=== PATIENT | female | born 1990 | race Caucasian/White ===

== ENCOUNTER 2021-05-30 15:58 | Observation (INO) | payer OTHER, SELFPAY ==
--- NOTE | ~2021-05-30 | CT_ITS ---
EXAMINATION: CT abdomen pelvis w con EXAM DATE: 05/30/2021 21:17 INDICATION: RLQ abd pain. TECHNIQUE: Spiral CT of the abdomen and pelvis was performed following intravenous injection of 100 m L Omnipaque 350. Axial, coronal and sagittal images of the abdomen and pelvis were reviewed. The do se-length product (DLP) for this examination was 738.72 mGy-cm. The exposure was tailored according to patient size (auto mA exposure control), and iterative reconstruction (ASIR) was used as additiona l dose reduction technique. There is no prior study for comparison. FINDINGS: The liver, spleen, adrenal glands and pancreas are unremarkable. Gallbladder is unremarkab le. No biliary obstruction. Portal and splenic veins are patent. Kidneys enhance symmetrically. T here is no hydronephrosis. The uterus and ovaries are unremarkable, no adnexal mass. The bladder i s unremarkable. There is no retroperitoneal or pelvic lymphadenopathy. There is an appendicolith in the mid aspect of the appendix, indicated on axial image 137. The portio n of appendix distal to the appendicolith is borderline enlarged at 6 mm, and the mucosa may have sli ghtly more enhancement. Possible early acute tip appendicitis. The stomach and small bowel are unrem arkable. There is expected amount of colonic stool. No free intraperitoneal gas. The heart is no rmal in size. There are no pericardial or pleural effusions. The lung bases are unremarkable. Ther e are no osteoblastic or osteolytic lesions identified. IMPRESSION: Possible early acute tip appendicitis. Reviewed, dictated and finalized at location A. PLANER
[2021-05-30 16:00] VITALS: BP 136/68; PULSE 73; RESP 14; TEMP 36.6; O2SAT 100
[2021-05-30 19:32] VITALS: BP 136/88; PULSE 71; RESP 20; O2SAT 100
--- NOTE | 2021-05-30 19:48 | ED.ABDPAIN ---
HPI - Abdominal Pain General Chief Complaint: Abdominal Pain <Keily Leyva PA-C - Last Filed: 05/30/21 22:07> Stated Complaint: rlq pain <Keily Leyva PA-C - Last Filed: 05/30/21 22:07> Time Seen by Provider: 05/30/21 19:19 <Keily Leyva PA-C - Last Filed: 05/30/21 22:07> Source: patient <Keily Leyva PA-C - Last Filed: 05/30/21 22:07> Mode of arrival: ambulatory <Keily Leyva PA-C - Last Filed: 05/30/21 22:07> Limitations: no limitations <Keily Leyva PA-C - Last Filed: 05/30/21 22:07> History of Present Illness HPI narrative: This is a 31-year-old female that presents emergency department for lower abdominal pain present since yesterday. Reports initially was a crampy pain. Now is a dull achy pain. She was tender palpation of the right lower quadrant when evaluated by her primary today. Was sent here for further evaluation. Denies any associated symptoms. Denies fever, vomiting, dysuria, hematuria, or diarrhea. <Keily Leyva PA-C - Last Filed: 05/30/21 22:07> Related Data Allergies/Adverse Reactions: Allergies Allergy/AdvReac Type Severity Reaction Status Date / Time No Known Allergies Allergy Verified 02/15/19 19:25 <Keily Leyva PA-C - Last Filed: 05/30/21 22:07> Review of Systems Review of Systems: CONSTITUTIONAL: Denies fever GASTROINTESTINAL: Reports abdominal pain. Denies nausea, vomiting, or diarrhea. GENITOURINARY: Denies dysuria or hematuria. <Keily Leyva PA-C - Last Filed: 05/30/21 22:07> All systems reviewed & are unremarkable except as noted in HPI and below <Keily Leyva PA-C - Last Filed: 05/30/21 22:07> [facility] Past Medical History Medical History: Medical History (Updated 05/30/21 @ 22:05 by Keily Leyva PA-C) No active medical problems <Keily Leyva PA-C - Last Filed: 05/30/21 22:07> Family History Family History: Family History (Updated 01/21/16 @ 23:19 by DOCTOR UNKNOWN) Other Family history of malignant neoplasm of breast Hypertension <Keily Leyva PA-C - Last Filed: 05/30/21 22:07> Social History Social History: Social History Smoking status: Smoker, status unknown Alcohol intake: never <Keily Leyva PA-C - Last Filed: 05/30/21 22:07> Exam Narrative: GENERAL: Well-appearing, well-nourished, and in no acute distress. HEAD: Normocephalic, atraumatic. EYES: EOMI. CHEST: Clear to auscultation. No respiratory distress. No wheezes rales or rhonchi HEART: Regular rate and rhythm. No murmur heard. Normal peripheral pulses. ABDOMEN: Soft, nondistended, normal active bowel sounds. Tender to palpation of the right lower quadrant, without guarding. No CVA tenderness EXTREMITIES: Normal range of motion. No edema. SKIN: Warm, dry, no rash. NEURO: No focal deficits. Alert and oriented x3. PSYCH: Normal mood and affect <Keily Leyva PA-C - Last Filed: 05/30/21 22:07> Course PEDIATRIC ONCOLOGY NURSE/PA Physician Supervision i have seen this pt and agreed with notes and plan <Gage Oliveros MD - Last Filed: 05/30/21 22:27> Consultations Consultation #1: Spoke with Dr. Gonzales about patient and workup. Patient will be made NPO, started on antibiotics and he will evaluate in the morning <Keily Leyva PA-C - Last Filed: 05/30/21 22:07> Date: 05/30/21 <Keily Leyva PA-C - Last Filed: 05/30/21 22:07> Time: 22:00 <Keily Leyva PA-C - Last Filed: 05/30/21 22:07> Vital Signs Vital signs: Vital Signs Temperature 36.6 C 05/30/21 16:00 Pulse Rate 73 05/30/21 16:00 Respiratory Rate 14 05/30/21 16:00 Blood Pressure 136/68 12/06/21 16:00 Pulse Oximetry 100 05/30/21 16:00 Temperature 36.6 C 05/30/21 16:00 Pulse Rate 71 05/30/21 19:32 Respiratory Rate 20 05/30/21 19:32 Blood Pressure 136/88 05/30/21 19:32 Pulse Oximetry 100 05/30/21 19:32 <Keily Leyva PA-C - Last Filed: 05/30/21 22:07>
[2021-05-30 20:21] LABS: Basophils Percent Auto 0.6 % (0.2-1.2); Eosinophils Absolute Auto 0.1 K/mm3 (0-0.3); Eosinophils Percent Auto 1.3 % (0-4.4); Hematocrit 39.6 % (37.0-47.0); Hemoglobin 14.1 g/dL (12.0-15.0); Immature Granulocyte Absolute 0.01 K/mm3 (0.00-0.031); Immature Granulocyte Percent A 0.2 % (0-0.5); Lymphocytes Absolute Auto 2.15 K/mm3 (0.9-3.2); Mean Corpuscular HGB Conc 35.6 g/dl (32-36); Mean Corpuscular Hemoglobin 31.9 pg (26-34); Mean Corpuscular Volume 89.6 fl (80-100); Mean Platelet Volume 10.6 fl (7.4-10.4); Monocytes Absolute Auto 0.4 K/mm3 (0.1-0.6); Neutrophils Absolute Auto 2.6 K/mm3 (1.3-6.7); Neutrophils Percent Auto 49.9 % (45.5-73.1); Platelet Count Result 244 k/mm3 (150-375); Red Blood Count 4.42 M/mm3 (4.2-5.4); Red Cell Distribution Width 12.3 % (11.5-14.5); White Blood Count 5.3 K/mm3 (4.5-10.0)
[2021-05-30 20:26] LABS: Add Urine Microscopic? YES; Appearance Urine Clear (Clear); Bilirubin Urine Negative (Negative); Blood Urine Negative (Negative); Color Urine Yellow (Yellow); Glucose Urine UA Negative (Negative); Ketones Urine Negative (Negative); Leukocyte Esterase Ur Negative LEU/UL (Negative); Mucus Urine Rare /lpf; Nitrate Urine Negative (Negative); Protein Urine Negative (Negative); Specific Grav Ur 1.013 (1.001-1.035); Squamous Epithelial Cell Urine Rare /hpf (Few); WBC Urine 0-3 /hpf
[2021-05-30 20:42] LABS: Alanine Aminotransferase 21 U/L (4-35); Albumin Level 4.2 g/dL (3.5-5.1); Alkaline Phosphatase 44 U/L (38-126); Anion Gap 6 mmol/L (8-16); Aspartate Amino Transferase 23 U/L (14-36); Bilirubin,Total 0.4 mg/dL (0.2-1.3); Blood Urea Nitrogen 7 mg/dL (7-17); Calcium 9.1 mg/dL (8.4-10.2); Carbon Dioxide 25 mmol/L (22-30); Chloride 104 mmol/L (98-107); Estimated CRCL calculation 141 ml/min; Estimated Glomerular Filt Rate > 60; Glucose 94 mg/dL (65-110); Lipase 49 U/L (23-300); Potassium 3.9 mmol/L (3.4-5.0); Sodium 135 mmol/L (137-145)
[2021-05-31] VITALS (12 sets, daily range): BP systolic 116–130; BP diastolic 51–78; PULSE 64–92; RESP 11–18; TEMP 36.6–36.8; O2SAT 96–100; BMI 30.3
[2021-05-31] MEDS: SODIUM CHLORIDE 0.9% IV 1,000 ML 125 ML IV CONT ×2 (01:19→10:00)
--- NOTE | 2021-05-31 01:28 | ADMGEN ---
This patient, Didi Gomez, was admitted to [facility] Room 316-02. Patient/family oriented to hospital policies and general routines including ID bracelet, bed and alarms, visiting hours, pain management, procedures, bathroom and other care routines, personal items, smoking policy, room service/diet, and visiting hours. Information on how to activate the Rapid Response Team has been discussed. Patient/Family are encouraged to report perceived risks to care and to ask questions if they do not understand what they are told or what they should do.
[2021-05-31 07:18] LABS: Basophils Absolute Auto 0.1 K/mm3 (0.0-0.1); Eosinophils Absolute Auto 0.1 K/mm3 (0-0.3); Eosinophils Percent Auto 1.5 % (0-4.4); Hematocrit 37.3 % (37.0-47.0); Hemoglobin 13.2 g/dL (12.0-15.0); Immature Granulocyte Absolute 0.01 K/mm3 (0.00-0.031); Immature Granulocyte Percent A 0.2 % (0-0.5); Lymphocytes Absolute Auto 2.09 K/mm3 (0.9-3.2); Lymphocytes Percent Auto 40.3 % (18.3-44.2); Mean Corpuscular HGB Conc 35.4 g/dl (32-36); Mean Corpuscular Hemoglobin 31.4 pg (26-34); Mean Corpuscular Volume 88.6 fl (80-100); Mean Platelet Volume 10.7 fl (7.4-10.4); Monocytes Absolute Auto 0.5 K/mm3 (0.1-0.6); Monocytes Percent Auto 9.1 % (2.6-8.5); Neutrophils Absolute Auto 2.5 K/mm3 (1.3-6.7); Neutrophils Percent Auto 47.9 % (45.5-73.1); Platelet Count Result 229 k/mm3 (150-375); Red Blood Count 4.21 M/mm3 (4.2-5.4); Red Cell Distribution Width 12.3 % (11.5-14.5); White Blood Count 5.2 K/mm3 (4.5-10.0)
[2021-05-31 07:45] LABS: Alanine Aminotransferase 21 U/L (4-35); Albumin Level 3.6 g/dL (3.5-5.1); Alkaline Phosphatase 36 U/L (38-126); Anion Gap 7 mmol/L (8-16); Aspartate Amino Transferase 23 U/L (14-36); Bilirubin,Total 0.7 mg/dL (0.2-1.3); Blood Urea Nitrogen 6 mg/dL (7-17); Calcium 8.6 mg/dL (8.4-10.2); Carbon Dioxide 22 mmol/L (22-30); Chloride 107 mmol/L (98-107); Estimated CRCL calculation 123 ml/min; Estimated Glomerular Filt Rate > 60; Glucose 91 mg/dL (65-110); Potassium 3.7 mmol/L (3.4-5.0); Sodium 136 mmol/L (137-145)
--- NOTE | 2021-05-31 09:50 | PM.IMHP ---
H&P: HPI History of Present Illness Date/Time: 05/31/21 09:50 Chief Complaint: Right lower quadrant abdominal pain Narrative: This is a 31-year-old female who presented to the emergency department at the request of her primary care provider yesterday afternoon. She reports noticing an onset of cramping right lower quadrant abdominal pain starting Sunday evening, 2 days ago. Yesterday, she felt her pain improved slightly but she remained very tender in the right lower quadrant. She primarily only noticed her abdominal pain yesterday when sneezing and coughing. She called her PCP yesterday and was seen in the office. They requested she go to the ER for evaluation of her abdominal pain. CT scan of the abdomen and pelvis in the ER showed an appendicolith in the mid aspect of the appendix with a portion of the appendix distal to this being borderline enlarged at 6 mm with slight enhancement of the mucosa. Suggesting possible early acute tip appendicitis. Labs showed a normal white blood cell count. Urinalysis was unremarkable for a UTI. She had a bedside test that was negative. She does report starting her period today. Our service was consulted by the ED physician due to possible early acute appendicitis. The patient was admitted to our service and is seen on the medical floor this morning. She reports her pain is very minimal unless she coughs or someone palpates in her right lower quadrant. She denies nausea or vomiting. No known fevers or chills. No other complaints at this time. She has no history of abdominal surgery. She does report dealing with constipation chronically, but last had a bowel movement this morning. Review of Systems Review of Systems: All systems reviewed & are unremarkable except as noted in HPI and below Constitutional: Constitutional: Reports as per HPI, Denies chills, Denies fatigue and Denies fever(s) Eyes: Eyes: Reports no additional eye complaints ENT: Reports system reviewed and no additional complaints, except as documented and Reports Normal hearing present Cardiovascular: Cardiovascular: Reports no additional cardiovascular complaints, Denies chest pain and Denies leg edema Respiratory: Respiratory: Reports no additional respiratory complaints, Denies cough and Denies dyspnea Gastrointestinal: Gastrointestinal: Reports as per HPI, Reports no additional gastrointestinal complaints, Reports abdominal pain, Denies bloating, Denies hematochezia, Denies change in bowel habits, Denies change in stool character, Denies coffee ground emesis, Denies constipation, Denies diarrhea, Denies nausea and Denies vomiting Genitourinary: Genitourinary: Denies hematuria and Denies dysuria Musculoskeletal: Musculoskeletal: Denies abnormal gait and Denies deformity Neurologic: Reports system reviewed and no additional complaints, except as documented, Denies focal weakness, Denies numbness and Denies tingling Psychiatric: Psychiatric: Denies anxiety, Denies depression and Reports other (Hx ADHD treated with medication) [facility] Past Medical History Medical History ADHD Exercise-induced asthma Surgical History Surgical History No significant past surgical history Family History Family History Mother Gallbladder disease Other Gallbladder disease Other Family history of malignant neoplasm of breast Hypertension Social History Social History Smoking status: Never smoker Alcohol intake: never Substance use: current Substance use type: marijuana Last use: 05/29/2021 Living arrangements: with family Additional living arrangements comments: and has two children, 7 yr old and 12 yr old. Occupation/Education: occupation Additional occupation/education
--- NOTE | 2021-05-31 12:50 | PC.NURSE ---
On 05/31/21, the student, [ Leah Blackwood], provided care and completed [facility] documentation on this patient. I have reviewed the student's documentation and agree with the findings.
--- NOTE | 2021-05-31 13:07 | PC.NURSE ---
On 05/31/21, the student, [Annabel Helton ], provided care and completed [facility] documentation on this patient. I have reviewed the student's documentation and agree with the findings.
--- NOTE | 2021-05-31 14:46 | PC.NURSE ---
to OR per stretcher
--- NOTE | 2021-05-31 15:17 | WPDANESEPPF ---
Anes - Initial Pre Proc Eval Procedure: Operation Date: 05/31/21 14:30 Proposed Procedures p Laparoscopic Appendectomy - Parvez Gonzales DO Date/Time: 05/31/21 15:17 Surgeon: Parvez Gonzales DO Pre Op Diagnosis: Acute Appendicitis Patient Data Age: 31 Gender: F Height: 1.75 m Weight: 93.1 kg Last Vital Signs Temp 36.7 C 05/31/21 08:52 Pulse 82 05/31/21 08:52 Resp 12 05/31/21 08:52 BP 119/51 L 05/31/21 08:52 Pulse Ox 100 05/31/21 08:52 Allergies Allergy/AdvReac Type Severity Reaction Status Date / Time No Known Allergies Allergy Verified 05/31/21 15:03 Home Medications Medication Instructions Recorded Confirmed Type albuterol sulfate 2 puff INHALATION PRN PRN 05/31/21 05/31/21 History cetirizine 10 mg PO DAILY 05/31/21 05/31/21 History dextroamphetamine-amphetamine 15 mg PO DAILY 05/31/21 05/31/21 History fluticasone propionate 1 mcg INTRANASAL PRN 05/31/21 05/31/21 History Laboratory Tests 05/30/21 05/30/21 05/30/21 20:06 20:06 20:06 WBC 5.3 K/mm3 K/mm3 (4.5-10.0) RBC 4.42 M/mm3 M/mm3 (4.2-5.4) Hgb 14.1 g/dL g/dL (12.0-15.0) Hct 39.6 % % (37.0-47.0) MCV 89.6 fl fl (80-100) MCH 31.9 pg pg (26-34) MCHC 35.6 g/dl g/dl (32-36) RDW 12.3 % % (11.5-14.5) Plt Count 244 k/mm3 k/mm3 (150-375) MPV 10.6 fl H fl (7.4-10.4) Immature Gran % (Auto) 0.2 % % (0-0.5) Neut % (Auto) 49.9 % % (45.5-73.1) Lymph % (Auto) 41.0 % % (18.3-44.2) Brooks % (Auto) 7.0 % % (2.6-8.5) Eos % (Auto) 1.3 % % (0-4.4) Baso % (Auto) 0.6 % % (0.2-1.2) Lymph # (Auto) 2.15 K/mm3 K/mm3 (0.9-3.2) Brooks # (Auto) 0.4 K/mm3 K/mm3 (0.1-0.6) Eos # (Auto) 0.1 K/mm3 K/mm3 (0-0.3) Baso # (Auto) 0.0 K/mm3 K/mm3 (0.0-0.1) Abs Immat Gran (auto) 0.01 K/mm3 K/mm3 (0.00-0.031) Absolute Neuts (auto) 2.6 K/mm3 K/mm3 (1.3-6.7) Absolute Nucleated RBC 0.0 K/mm3 K/mm3 (0.0-0.012) Nucleated RBC % 0.0 % % (0.0-0.2) Sodium 135 mmol/L L mmol/L (137-145) Potassium 3.9 mmol/L mmol/L (3.4-5.0) Chloride 104 mmol/L mmol/L (98-107) Carbon Dioxide 25 mmol/L mmol/L (22-30) Anion Gap 6 mmol/L L mmol/L (8-16) BUN 7 mg/dL mg/dL (7-17) Creatinine 0.60 mg/dL L mg/dL (0.7-1.0) Estim Creat Clear Calc 141 ml/min ml/min Estimated GFR > 60 (59 - ) Glucose 94 mg/dL mg/dL (65-110) Calcium 9.1 mg/dL mg/dL (8.4-10.2) Total Bilirubin 0.4 mg/dL mg/dL (0.2-1.3) AST 23 U/L U/L (14-36) ALT 21 U/L U/L (4-35) Alkaline Phosphatase 44 U/L U/L (38-126) Total Protein 7.0 g/dL g/dL (6.3-8.2) Albumin 4.2 g/dL g/dL (3.5-5.1) Lipase 49 U/L U/L (23-300) Urine Color Yellow (Yellow) Urine Appearance Clear (Clear) Urine pH 7.0 (5.0-9.0) Ur Specific Tingley 1.013 (1.001-1.035) Urine Protein Negative mg/dL mg/dL (Negative) Urine Glucose (UA) Negative mg/dL mg/dL (Negative) Urine Ketones Negative mg/dL mg/dL (Negative) Ur Blood (Man) Negative (Negative) Urine Nitrate Negative (Negative) Urine Bilirubin Negative (Negative) Urine Urobilinogen 2.0 mg/dL H mg/dL (<2.0) Leukocyte Esterase Rfl Negative DEBBIE/UL DEBBIE/UL (Negative) Urine RBC 3-5 /hpf H /hpf (0-2) Urine WBC 0-3 /hpf /hpf Ur Squamous Epith Cells Rare /hpf /hpf (Few) Urine Mucus Rare /lpf /lpf 05/31/21 05/31/21 06:36 06:36 WBC 5.2 K/mm3 K/mm3 (4.5-10.0) RBC 4.21 M/mm3 M/mm3 (4.2-5.4) Hgb 13.2 g/dL g/dL (12.0-15.0)
[2021-05-31] MEDS: KETOROLAC 15 MG/ML VIAL (*BKC) IV PUSH (15:20)
[2021-05-31] MEDS: LACTATED RINGERS 1,000 ML 30 ML IV CONT ×2 (15:20→18:15)
--- NOTE | 2021-05-31 16:25 | WPDHPUPDATE1 ---
History and Physical Update Update Date/Time: 05/31/21 16:25 History and Physical has been reviewed, including an updated exam of the patient. There are NO changes in the patient's condition. Risks, benefits, and alternatives have been discussed and questions answered. Patient agrees to proceed with procedure.
[2021-05-31] MEDS: BUPIVACAINE HCL 0.5% PF 30 ML VIAL INFILTRATE (17:22)
[2021-05-31] MEDS: KETOROLAC 30 MG/ML VIAL (*BKC) IV PUSH (17:23)
--- NOTE | 2021-05-31 17:37 | W.PM.PROC2 ---
Procedure Note - Detailed Date of Procedure 05/31/21 Pre-op Diagnosis Acute Appendicitis Post-op Diagnosis same Procedure Performed Laparoscopic appendectomy Surgeon Parvez Gonzales, DO Anesthesia general and local (0.5% bupivicaine) Indications This is a 31-year-old woman who presented with right lower quadrant pain for the past 2 days. She began experiencing some vague lower abdominal pains and then had pain localized to the right lower quadrant. She has never experienced any pain like this in past. Workup in the emergency department showed normal white blood count with a left shift. A CT of her abdomen and pelvis showed evidence of an appendicolith and distal appendiceal thickening. Discussions were made with the patient about treatment options and decision was made to proceed with urgent laparoscopic appendectomy, possible open Findings Laparoscopic appendectomy was performed. The distal 3rd of the appendix appeared indurated and slightly dilated. There was no evidence of perforation or abscess. The base of the appendix appeared healthy and viable. There were no other intra-abdominal abnormalities. The appendix was removed and sent to the lab for pathology. Description of Procedure Procedure as well as risks, benefits, and alternatives were explained to the patient. The patient agreed to proceed. Written consent was obtained and placed in chart prior to procedure. The patient was brought back to surgical suite. She was placed supine on operating table. Time-out was done to confirm the patient and procedure. The patient was then intubated by the Anesthesia Department. Her abdomen was prepped and draped in sterile fashion using chlorhexidine prep. A 5 mm incision was made just to the left of the patient's umbilicus and a 5 mm Optiview trocar was advanced through the abdominal layers under direct visualization. Once inside the peritoneal cavity, carbon dioxide insufflation was used to create a pneumoperitoneum. The camera was inserted and the abdomen was inspected. No immediate abnormalities were identified. The patient was then placed in slight Trendelenburg position and rotated to the left. A 5 mm incision was made in the suprapubic region in midline and a 5 mm trocar was inserted under direct visualization. A 12 mm incision was made in the left lower quadrant and a 12 mm trocar was inserted under direct visualization. The right lower quadrant was carefully inspected. The cecum was identified and then this was traced back to the appendix. The appendix was identified and grasped at the mesoappendix and lifted anteriorly. Careful blunt dissection was carried out at the base of the appendix through the mesoappendix using a [place] grasper. An Endo-LEANDRO 45 mm blue load stapler was then advanced across the base of the appendix and clamped and fired. A white reload was then clamped across the mesoappendix and fired. This freed up our appendix completely. It was then placed in an EndoCatch bag and removed through the left lower quadrant port. The staple lines were then inspected. Hemostasis appeared adequate and the staple lines appeared secure. The area was then irrigated with sterile saline. The pelvis was then carefully inspected and irrigated with sterile saline as well and the remainder of the abdomen was carefully inspected. The patient was then flattened out in bed. One final inspection was made around the abdominal cavity and no other abnormalities were seen. The left lower quadrant port was removed and a Juan Carlos-Lori cone was used to approximate the fascia with an 0 Vicryl simple interrupted suture. The remaining ports were then removed under direct visualization. The camera was removed and the pneumoperitoneum was released. 0.5% bupivacaine with epinephrine was infiltrated locally around each of the incisions. The skin of the incisions was then approximated using 4-0 Monocryl subcuticular suture and Exofin glue was applied
[2021-05-31] MEDS: fentaNYL CITRATE INJ (*CRX) 100 MCG/2 ML VIAL 25 MCG IV PUSH ×2 (18:12→18:16)
[2021-05-31] MEDS: oxyCODONE HCL (*CRX) 5 MG TAB IR PO (18:47)
[2021-05-31] MEDS: ONDANSETRON INJ 4 MG/2 ML VIAL IV PUSH (18:48)
[2021-05-31] MEDS: diphenhydrAMINE HCl INJ 50 MG/ML VIAL 25 MG IV PUSH (19:18)
[2021-05-31] MEDS: DEXTROSE 5% IN WATER 500 ML 100 ML IV CONT (19:20)
[2021-05-31] MEDS: METOCLOPRAMIDE HCL INJ 10 MG/2 ML VIAL IV PUSH (19:25)
[2021-05-31] MEDS: SCOPOLAMINE 1.5 MG PATCH TRANSDERM (19:28)
--- NOTE | 2021-05-31 19:45 | PM.DS ---
DS: Admitting Diagnosis Discharge Date 05/31/21 Admitting Diagnosis Acute uncomplicated appendicitis DS: Discharge Diagnosis Discharge Diagnosis (1) Acute appendicitis: Qualifiers: Acute appendicitis type: with localized peritonitis Appendicitis abscess presence: without abscess Appendicitis gangrene presence: without gangrene Appendicitis perforation presence: without perforation Qualified Code(s): K35.30 - Acute appendicitis with localized peritonitis, without perforation or gangrene Code(s): K35.80 - Unspecified acute appendicitis Status: Acute (2) BMI 30.0-30.9,adult: Code(s): Z68.30 - Body mass index [BMI] 30.0-30.9, adult Status: Acute DS: Summary Hospital Course Reason for hospitalization: Right lower quadrant pain Hospital Course: This is a 31 year woman who presented to the emergency department on 05/30/2021 with right lower quadrant pain for the past several days. Workup in the emergency department showed evidence of acute uncomplicated appendicitis. She was admitted and started on broad-spectrum IV antibiotics. On 05/31/2021 she underwent laparoscopic appendectomy. Surgery was uncomplicated and she was returned to the surgical floor postoperatively. Diet and activity were advanced as tolerated. Her vitals remained stable, she was tolerating her diet, pain was controlled, and she was ambulating in the halls. She was discharged on 05/31/2021. Status at Discharge Functional status at discharge: independent ambulation Overall status at discharge: patient is progressing back to baseline Time Spent with Patient Time attestation: Total time spent providing and/or coordinating discharge services: Time spent: Less than 30 minutes Exam Narrative: Unchanged from preoperative exam except for surgical changes DS: Data Data Completed and Pending Completed studies during hospitalization: Pending at discharge 05/31/21 17:17 Surgical [PTH] Routine Discharge Plan Discharge Attending physician on discharge: Parvez Das Consulting providers: Keily Leyva ; Raphael Mcdonald ; Karen Puga Discharging Clinician: Parvez Das Patient Disposition: Home, Self-Care Activity: other - see discharge instructions Diet: regular Wound Care Instructions: other - see discharge instructions Discharge Instructions: Remove the Scopolamine patch that was placed behind your ear in 72 hours or less. Wash your hands after touching.DISCHARGE INSTRUCTION SHEET FOR HERNIA, GALLBLADDER AND APPENDIX SURGERIES DR. DAS PATIENT TO TAKE HOME 1. May shower in 24 hours, no soaking in bath x 2weeks. 2. Call office for: Wound increasingly painful or bleeding Vomiting Fever of greater than 101 degrees 3. If no bowel movement for three days, take 1 oz. (30 ml) Milk of Magnesia or MiraLax 17g 1 to 2 times daily. 4. No heavy lifting > 10-15 pounds x weeks for hernia repairs and 2 weeks for laparoscopic cholecystectomy or appendectomy. 5. No driving for 3 days or while taking narcotic pain medications. 6. Ice to surgical site for 48 hours (30 min on, then 30 min off). 7. Up walking 10-30 minutes three times per day. 8. Resume previous home medications. 9. Follow-up 10-14 days in office for wound check or as previously scheduled. ([phone]) 10. Oral pain medications prescription to be sent to pharmacy. Take Tylenol 500mg every 6 hours and Ibuprofen 600mg every 6 hours for the first 2 days, then as needed. 11. NUTRITION: Start out by drinking fluids and increase your diet as tolerated. If you experience nausea, try dry toast, crackers, and 7-UP. If nausea or vomiting persists, contact your surgeon?s office. 12. Gallbladders-Low Fat Diet for 2 weeks (send care note of low fat diet) 13. Inguinal Hernias-wear scrotal support for 48 hours 14. Abdominal Hernias-if sent home with
== END 2021-05-31 19:50 | disposition home or self-care (01) ==
LOC: ANHED 22:05 → ANH3MEDSUR 05-31 00:10
PROVIDERS: Physician Assistant; Admitting Provider Surgery; Emergency Provider Family Medicine; PCP Nurse Practitioner Family; Visit Provider Surgery
PROC: 0DTJ4ZZ Resection of Appendix, Percutaneous Endoscopic Approach (ICD-10-PCS; CPT 44970; principal; 2021-05-31 14:30)
DX: K35.30 Acute appendicitis with localized peritonitis, without perforation or gangrene (principal)
CPT/HCPCS: 44970; 36415; 74177; 80053; 81001; 81025; 83690; 85025; 88304; 96361; 96365; 96374; 99285; A9270; G0378; G0379; J0131; J0330; J1100; J1200; J1885; J2250; J2405; J2543; J2704; J2710; J2765; J3010; J7030; J7060; J7120; Q9967

== ENCOUNTER 2021-11-03 11:45 | Outpatient (CLI) | payer OTHER, SELFPAY ==
--- NOTE | ~2021-11-03 | MMUS_ITS ---
EXAMINATION: MM diagnostic melisa RT w roma, US breast RT complete HISTORY: Palpable abnormality in the right breast on clinical examination. TECHNIQUE: Additional 3-D tomosynthesis images of right were performed and synthetic 2-D images were generated. CAD analysis was submitted and interpreted. High resolution complete right breast ultrasou nd was performed. COMPARISON: None BREAST PARENCHYMAL COMPOSITION: The breasts are heterogenously dense, which may obscure small masses FINDINGS: MAMMOGRAPHIC FINDINGS: There are no suspicious masses, calcifications or architectural distortion in the right breast to sug gest malignancy. ULTRASOUND: Complete US of all 4 quadrants of the right breast and retroareolar region was reviewed. Normal heter ogeneous echotexture without focal solid or cystic mass. IMPRESSION: 1. No evidence for malignancy in the right breast. BI-RADS CATEGORY 1 - NEGATIVE Reviewed, dictated and finalized at location A. IMPRESSION: 1. No evidence for malignancy in the right breast. BI-RADS CATEGORY 1 - NEGATIVE
== END 2021-11-03 11:46 | disposition home or self-care (01) ==
PROVIDERS: PCP Nurse Practitioner Family; Visit Provider Obstetrics & Gynecology
DX: R92.8 Other abnormal and inconclusive findings on diagnostic imaging of breast (principal); N63.10 Unspecified lump in the right breast, unspecified quadrant
CPT/HCPCS: 76641; 77061; 77065; G0279

== ENCOUNTER 2022-01-11 13:18 | Emergency (ER) | payer OTHER, SELFPAY ==
--- NOTE | 2022-01-11 13:23 | ED.URI ---
HPI - URI/Sore Throat General Chief Complaint: Upper Respiratory Infection Stated Complaint: Headache,Sinus Time Seen by Provider: 01/11/22 13:24 Source: patient and RN notes reviewed History of Present Illness HPI Narrative: Patient is a 31-year-old female who presents the urgent care with complaints of headache, sinus pressure, chills and body aches. Patient also reports of a dry cough and shortness of breath on exertion. Patient states she does have a history of exercise-induced asthma and has been using her inhaler. Patient states she also takes Singulair and has been using Tylenol Cold and sinus. Patient denies of any ill exposures. Denies any fever, chills, nausea or vomiting. No other acute complaints. No acute distress noted. Patient aware of the plan of care. Some parts of this dictation were generated by voice recognition software and may contain typographical and/or grammatical inaccuracies. Related Data Home Medications Medication Instructions Recorded Confirmed albuterol sulfate 90 mcg/actuation 2 puff inhalation PRN PRN asthma 05/31/21 01/11/22 aerosol inhaler cetirizine 10 mg tablet 10 mg PO DAILY 05/31/21 01/11/22 dextroamphetamine-amphetamine ER 15 mg PO DAILY 05/31/21 01/11/22 15 mg 24hr capsule,extend release fluticasone propionate 50 1 mcg intranasal PRN 05/31/21 01/11/22 mcg/actuation nasal spray,suspension etonogestrel 0.12 mg-ethinyl 1 vag ring vaginal MONTHLY 01/11/22 01/11/22 estradiol 0.015 mg/24 hr vaginal ring Allergies Allergy/AdvReac Type Severity Reaction Status Date / Time No Known Allergies Allergy Verified 01/11/22 13:30 Review of Systems Review of Systems: CONSTITUTIONAL: Reports of chills EYES: Denies visual changes, redness, or discharge. ENT: Reports of sore throat and left otalgia CARDIOVASCULAR: Denies chest pain, palpitations, or edema. RESPIRATORY: Reports of dry cough with intermittent dyspnea GASTROINTESTINAL: Denies abdominal pain, nausea, vomiting, or diarrhea. GENITOURINARY: Denies dysuria or hematuria. SKIN: Denies rash or itching. MUSCULOSKELETAL: Denies back pain, joint pain, or myalgia. NEUROLOGIC: Reports of headache All other systems reviewed are negative, except as documented in HPI. PMFSH Past Medical History Medical History ADHD Exercise-induced asthma Surgical History Surgical History No significant past surgical history S/P laparoscopic appendectomy 05/31/21 Family History Family History Mother Gallbladder disease Other Gallbladder disease Other Family history of malignant neoplasm of breast Hypertension Social History Social History Smoking status: Former smoker Alcohol intake: never Substance use: current Substance use type: marijuana Last use: 05/29/2021 Additional living arrangements comments: and has two children, 7 yr old and 12 yr old. 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 Gender identity (if verbalized by the patient): Female Comments At the time of my signature, I reviewed and agree with the nursing past medical, surgical, social, and family history. There is no relevant family history pertinent to the patient complaint. Exam Narrative: GENERAL: This is a well-nourished, well-developed patient. Appears slightly fatigued HEAD: normocephalic, atraumatic. EYES: PERRL. Sclera clear/white. Vision is grossly intact. EARS: External ears normal, auditory canals clear and without drainage, TMs normal without perforation. Hearing grossly intact. NOSE: External nose normal with no obvious nasal discharge, nares without redness, no rhinorrhea. THROAT: Mucous membranes moist, posterior pharynx clear. NECK: Neck supple CARDI
[2022-01-11 13:25] VITALS: BP 128/72; PULSE 91; RESP 16; TEMP 37.2; O2SAT 100
== END 2022-01-11 14:10 | disposition home or self-care (01) ==
PROVIDERS: Emergency Provider Nurse Practitioner Family; PCP Nurse Practitioner Family
DX: U07.1 COVID-19 (principal); Z87.891 Personal history of nicotine dependence; J45.990 Exercise induced bronchospasm; F90.9 Attention-deficit hyperactivity disorder, unspecified type
CPT/HCPCS: 87426; 99213; C9803; G0463

== ENCOUNTER 2023-01-26 14:32 | Emergency (ER) | payer OTHER, SELFPAY ==
--- NOTE | ~2023-01-26 | XR_ITS ---
EXAMINATION: XR chest 2V DATE: 01/26/2023 14:56 INDICATION: Cough. Shortness of breath. TECHNIQUE: Frontal and lateral views of the chest were obtained. COMPARISON: Chest 2 views 08/30/2009, CT abdomen and pelvis 05/30/2021 FINDINGS: Calcified left lung nodules and calcified left hilar lymph nodes are consistent with old gr anulomatous disease. No pleural effusion or pneumothorax. The heart size is normal. IMPRESSION: 1. No acute cardiopulmonary disease. Reviewed, dictated and finalized at location B.
--- NOTE | 2023-01-26 14:36 | ED.URI ---
HPI - URI/Sore Throat General Chief Complaint: Upper Respiratory Infection Stated Complaint: congestion,ear pain Time Seen by Provider: 01/26/23 14:34 Source: patient Mode of arrival: ambulatory Limitations: no limitations History of Present Illness HPI Narrative: Didi is a 32-year-old female patient presenting to the clinic today with complaints of cough, nasal congestion, shortness of breath, and ear pain times 9 days. She reports no known fever or chills. States her cough is more productive in the morning. Is coughing up green phlegm. Related Data Home Medications Medication Instructions Recorded Confirmed cetirizine 10 mg tablet 10 mg PO DAILY 05/31/21 01/26/23 dextroamphetamine-amphetamine ER 15 mg PO DAILY 05/31/21 01/26/23 15 mg 24hr capsule,extend release fluticasone propionate 50 1 mcg intranasal PRN 05/31/21 01/26/23 mcg/actuation nasal spray,suspension etonogestrel 0.12 mg-ethinyl 1 vag ring vaginal MONTHLY 01/11/22 01/26/23 estradiol 0.015 mg/24 hr vaginal ring famotidine 20 mg tablet 20 mg PO DAILY 01/26/23 01/26/23 Allergies Allergy/AdvReac Type Severity Reaction Status Date / Time No Known Allergies Allergy Verified 01/26/23 14:59 Review of Systems Review of Systems: Pertinent positives per HPI. Patient denies any fever, chills, rash, headache, visual changes, dizziness, sore throat, chest pain, palpitations, nausea, vomiting, diarrhea, constipation, abdominal pain, or any urinary issues. [facility] Past Medical History Medical History ADHD Exercise-induced asthma Surgical History Surgical History No significant past surgical history S/P laparoscopic appendectomy 05/31/21 Family History Family History Mother Gallbladder disease Other Gallbladder disease Other Family history of malignant neoplasm of breast Hypertension Social History Social History Smoking status: Former smoker Alcohol intake: never Substance use: current Substance use type: marijuana Last use: 05/29/2021 Living arrangements: with family Additional living arrangements comments: and has two children, 7 yr old and 12 yr old. 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 Gender identity (if verbalized by the patient): Female Comments At the time of my signature, I reviewed and agree with the nursing past medical, surgical, social, and family history. There is no relevant family history pertinent to the patient complaint. Exam Narrative: General: Well-developed, well nourished, in no apparent distress Head: Normocephalic, atraumatic Eyes: Pupils equally round and reactive to light bilaterally, EOM intact, sclera and conjunctive clear, no discharge, lids normal Ears: TMs intact and congested, ear canals clear, no drainage, grossly hearing normal. Nose: Nares patent, green discharge, moderate inflammation, right frontal sinus tenderness. Mouth: Oropharynx without lesions or masses, good dentition, MMM. Neck: Supple, trachea midline, no enlargement of anterior or posterior cervical nodes, no thyroid masses or goiter palpable. Cardio: Regular rate and rhythm, s1 and s2 normal, no murmur appreciated. Resp: Clear to auscultation bilaterally anteriorly and posteriorly, no rhonchi, rales, wheezing or rubs Course Course Emergency Course: Portions of this record may have been created with voice recognition software. Level of Care: Express Care Visit Vital Signs Vital signs: Vital signs reviewed MDM - URI/Sore Throat MDM Narrative Medical decision making narrative: At the time of visit patient is resting comfortably on exam table. Chest x-ray was perfo
[2023-01-26 15:00] VITALS: BP 142/72; PULSE 89; RESP 18; TEMP 36.9; O2SAT 100
== END 2023-01-26 15:07 | disposition home or self-care (01) ==
PROVIDERS: Emergency Provider Nurse Practitioner Family; PCP Nurse Practitioner Family
DX: J01.90 Acute sinusitis, unspecified (principal); Z87.891 Personal history of nicotine dependence; F90.9 Attention-deficit hyperactivity disorder, unspecified type; J45.990 Exercise induced bronchospasm
CPT/HCPCS: 71046; 99213; G0463

== ENCOUNTER 2023-12-19 11:02 | Outpatient (RCR) | payer OTHER, SELFPAY ==
[2023-12-19 12:31] LABS: Hematocrit 37.7 % (37.0-47.0); Hemoglobin 13.1 g/dL (12.0-15.0)
[2023-12-19 12:40] LABS: Glucose 1 Hour PP 50gm Dose 89 mg/dL
[2023-12-19 13:20] LABS: HIV 1/2 Ab P24 Ag Result Negative (Negative)
[2023-12-19] MEDS: RHO(D) IMMUNE GLOBULIN 300 MCG/2 ML SYRINGE IM (16:28)
== END 2024-03-18 23:59 | disposition home or self-care (01) ==
LOC: ANHLAB 11:02
PROVIDERS: PCP Nurse Practitioner Family; Visit Provider Advanced Practice Midwife
DX: Z11.4 Encounter for screening for human immunodeficiency virus [HIV] (principal); Z29.13 Encounter for prophylactic Rho(D) immune globulin; O36.0190 Maternal care for anti-D [Rh] antibodies, unspecified trimester, not applicable or unspecified; Z3A.00 Weeks of gestation of pregnancy not specified
CPT/HCPCS: 36415; 82947; 85014; 85018; 85461; 86703; 86850; 86900; 86901; 90384; 96372; G0432; J2790

== ENCOUNTER 2024-03-05 00:01 | Inpatient (IN) | payer OTHER, SELFPAY ==
[2024-03-05] VITALS (314 sets, daily range): BP systolic 77–175; BP diastolic 28–161; PULSE 25–168; RESP 12–18; TEMP 36.3–37.4; O2SAT 91–100; BMI 35.4
[2024-03-05 01:23] LABS: Basophils Absolute Auto 0.1 K/mm3 (0.0-0.1); Basophils Percent Auto 0.6 % (0.2-1.2); Eosinophils Absolute Auto 0.3 K/mm3 (0-0.3); Eosinophils Percent Auto 1.9 % (0-4.4); Hematocrit 34.8 % (37.0-47.0); Hemoglobin 12.4 g/dL (12.0-15.0); Immature Granulocyte Absolute 0.15 K/mm3 (0.00-0.031); Lymphocytes Absolute Auto 2.72 K/mm3 (0.9-3.2); Lymphocytes Percent Auto 18.7 % (18.3-44.2); Mean Corpuscular HGB Conc 35.6 g/dl (32-36); Mean Corpuscular Hemoglobin 32.1 pg (26-34); Mean Corpuscular Volume 90.2 fl (80-100); Monocytes Absolute Auto 0.9 K/mm3 (0.1-0.6); Monocytes Percent Auto 5.9 % (2.6-8.5); Neutrophils Absolute Auto 10.4 K/mm3 (1.3-6.7); Neutrophils Percent Auto 71.9 % (45.5-73.1); Platelet Count Result 194 k/mm3 (150-375); Red Blood Count 3.86 M/mm3 (4.2-5.4); White Blood Count 14.5 K/mm3 (4.5-10.0)
[2024-03-05] MEDS: OXYTOCIN 30 UNITS/NS 500 ML 30 UNITS/500 ML BAG IV CONT (01:23)
[2024-03-05] MEDS: LACTATED RINGERS 1,000 ML 125 ML IV CONT ×3 (01:26→09:17)
--- NOTE | 2024-03-05 01:28 | LDADM ---
This patient, Didi Gomez, was admitted to Labor/Delivery/Recovery 102 on 03/05/24 at 00:01. Plans for labor, pain management and were discussed with patient. Patient/family oriented to hospital policies and general routines including ID bracelet, bed and alarms, visiting hours, pain management, procedures, bathroom and other care routines, personal items, smoking policy, room service/diet and guest tray routines, security routines, and visiting hours. Patient/Family are encouraged to report perceived risks to care and to ask questions if they do not understand what they are told or what they should do. See OBIX for further documentation.
[2024-03-05 01:50] LABS: Rapid Plasma Reagin Non-Reactive (NonReactive)
[2024-03-05 02:13] LABS: HIV 1/2 Ab P24 Ag Result Negative (Negative)
--- NOTE | 2024-03-05 05:04 | WPDANESEPP ---
Anes - Eval Pre Procedure Procedure: Labor epidural Date/Time: 03/05/24 05:04 Surgeon: Ritika Preop Diagnosis: Abdominal pain with contractions Pre Op Diagnosis: Induction of Labor Patient Data Age: 33 Gender: F Height: 1.75 m Weight: 109 kg Last Vital Signs Pulse 76 03/05/24 05:01 BP 105/48 L 03/05/24 05:01 Pulse Ox 99 03/05/24 05:00 Allergies Allergy/AdvReac Type Severity Reaction Status Date / Time No Known Allergies Allergy Verified 02/15/24 12:38 Home Medications Medication Instructions Recorded Confirmed Type cetirizine 10 mg tablet 10 mg PO DAILY PRN allergy 10/10/23 02/15/24 Rx symptoms #90 tabs vits no.126-ferrous fum 1 tablet PO DAILY 02/15/24 02/15/24 History 28 mg iron-folic acid 800 mcg tablet (Classic ) Laboratory Tests 03/05/24 00:39 WBC 14.5 H K/mm3 (4.5-10.0) RBC 3.86 L M/mm3 (4.2-5.4) Hgb 12.4 g/dL (12.0-15.0) Hct 34.8 L % (37.0-47.0) MCV 90.2 fl (80-100) MCH 32.1 pg (26-34) MCHC 35.6 g/dl (32-36) RDW 14.0 % (11.5-14.5) Plt Count 194 k/mm3 (150-375) MPV 11.0 H fl (7.4-10.4) Immature Gran % (Auto) 1.0 H % (0-0.5) Neut % (Auto) 71.9 % (45.5-73.1) Lymph % (Auto) 18.7 % (18.3-44.2) [place] % (Auto) 5.9 % (2.6-8.5) Eos % (Auto) 1.9 % (0-4.4) Baso % (Auto) 0.6 % (0.2-1.2) Lymph # (Auto) 2.72 K/mm3 (0.9-3.2) [place] # (Auto) 0.9 H K/mm3 (0.1-0.6) Eos # (Auto) 0.3 K/mm3 (0-0.3) Baso # (Auto) 0.1 K/mm3 (0.0-0.1) Abs Immat Gran (auto) 0.15 H K/mm3 (0.00-0.031) Absolute Neuts (auto) 10.4 H K/mm3 (1.3-6.7) Absolute Nucleated RBC 0.000 K/mm3 (0.0-0.012) Nucleated RBC % 0.0 % (0.0-0.2) RPR Non-reactive (NonReactive) HIV 1&2 Ab/P24 Ag 4thGn Negative (Negative) Blood Type A Negative Antibody Screen Negative : gestational age HCG: positive Patient hx anesthesia problems: none Family hx anesthesia problems: none Results Review: All pre-operative results and documents have been reviewed as part of the pre-operative evaluation. [facility] Past Medical History Medical History ADHD Allergies Asthma Exercise-induced asthma Obesity Surgical History Surgical History No significant past surgical history S/P laparoscopic appendectomy 05/31/21 Family History Family History Mother Gallbladder disease Other Gallbladder disease Other Family history of malignant neoplasm of breast Hypertension Social History Social History (Updated 10/10/23 @ 09:46 by Tamy Galvez [facility]) Smoking status: Never smoker Alcohol intake: never Substance use: never Substance use type: marijuana Last use: 05/29/2021 Do You Feel Safe in your Home?: Yes Lack of Transportation: No Lack of Food: Never True Current Housing: I Have Housing Concerned About Future Housing: No Difficulty Paying Gas/Electric Bills: No Difficulty Paying for Meds: No Currently Unemployed: No Education: Grade School Difficulty w/ Childcare or Family Care: No Living arrangements: alone Occupation/Education: occupation 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
--- NOTE | 2024-03-05 07:28 | WPDOBADMIT ---
Obstetrics - Admit Note Admission Note: record reviewed. No pertinent additions to the history and/or any subsequent changes in the physical findings that are not consistent with the expected course of the were found. Additions to the history and/or subsequent changes in the physical findings follow. IOL, SVE 2/80/-2 AROM moderate amount of clear, odorless fluid, anticipate vaginal delivery
[2024-03-05] MEDS: fentaNYL CITRATE INJ (*CRX) 100 MCG/2 ML VIAL IV PUSH (08:37)
[2024-03-05] MEDS: ONDANSETRON INJ 4 MG/2 ML VIAL IV PUSH (09:38)
--- NOTE | 2024-03-05 14:43 | P.PCNOB_ITS ---
OB - Vaginal Delivery Note Procedure Delivery date: 03/05/24 Induction method: AROM and Per Pitocin Protocol Delivery monitor: External FHT and Internal Uterine Route of delivery: Episiotomy description: None Laceration Description: Perineal - 1st Degree Delivery repair: vicryl Specimen: No Quantitative Blood Loss (ml): 120 Anesthesia type: Epidural Disposition: Floor Complications: No immediate complications [place] Baby Date of : 03/05/24 Time of : 14:30 Gestational Age by Date: 39 Infant gender: Male Weight (pounds): 8 Weight (ounces): 7 presentation: vertex position: Right Occiput Anterior Placenta delivery description: Spontaneous Cord Vessel Description: 3 Vessels, Nuchal Cord and Delayed Cord Clamping score one minute: 8 score five minutes: 8
[2024-03-05] MEDS: OXYTOCIN 30 UNITS/NS 500 ML 30 UNITS/500 ML BAG 125 UNITS IV CONT (15:09)
[2024-03-05] MEDS: BENZOCAINE 20% AER SPR (*SP) 56 GM CAN 1 SPRAY TOPICAL (17:46)
[2024-03-05] MEDS: WITCH HAZEL 40 PADS 1 PAD TOPICAL (17:46)
[2024-03-05] MEDS: ACETAMINOPHEN 325 MG TABLET 650 MG PO ×2 (17:47→23:22)
[2024-03-05] MEDS: IBUPROFEN 600 MG TABLET PO ×2 (17:47→23:23)
[2024-03-05] MEDS: POLYSACCHARIDE IRON COMPLEX 150 MG CAPSULE PO (17:48)
--- NOTE | 2024-03-05 18:24 | PC.NURSE ---
pt ambulated to bathroom with minimal assistance. voided. changed pads and took up to PP. report given
[2024-03-06 04:32] LABS: Hematocrit 32.5 % (37.0-47.0); Hemoglobin 11.3 g/dL (12.0-15.0)
[2024-03-06 08:06] VITALS: BP 127/81; PULSE 85; RESP 16; TEMP 36.8; O2SAT 99
[2024-03-06] MEDS: DOCUSATE SODIUM 100 MG CAPSULE PO (09:55)
[2024-03-06] MEDS: IBUPROFEN 600 MG TABLET PO (09:55)
[2024-03-06] MEDS: ACETAMINOPHEN 325 MG TABLET 650 MG PO (09:55)
[2024-03-06] MEDS: MULTIVIT/MIN/PREN/FOL AC/IRON TABLET 1 TAB PO (09:55)
--- NOTE | 2024-03-06 09:55 | PM.OBPNVD ---
OB - PN: Subj Subjective Date/time seen: 03/06/24 09:55 Patient comments: no complaints, pain well controlled, incisional pain, tolerating diet and flatus present OB - PN: Obj Data Labs 03/06/24 03:34 Labs: Laboratory Results - last 24 hr 03/06/24 03:34 Hgb 11.3 L Hct 32.5 L Blood Type A Negative Antibody Screen Negative OB - PN A/P Plan day: 1 Plan: routine care Comments: No problems, routine care Time Spent With Patient Time: Total time spent is greater than 50% in coordination of care (as documented) at patient's floor/unit and/or counseling patient: Exam Const: General: comfortable, no acute distress and alert Resp: Effort & Inspection: normal respiratory effort Auscultation: no crackles, no rales and no rhonchi Cardio: Rate: regular rate Heart sounds: no click, no murmurs and no rubs GI: Inspection: non-distended GI Palp: No Tenderness to palpation present (GI) Auscultation: normal bowel sounds Other: Incision - CDI Extrem: General: normal to inspection, no pedal edema and no calf tenderness
--- NOTE | 2024-03-06 09:56 | PM.OBDSVD ---
DS: Admitting Diagnosis Discharge Date March 06, 2024 Admitting Diagnosis term OB - DS: Summary OB Procedures : None OB Procedures Intrapartum: Spontaneous Vag Delivery OB Procedures: : None Peripartum Data Laceration Description: Perineal - 1st Degree Episiotomy description: None Time Spent with Patient Time attestation: Total time spent providing and/or coordinating discharge services: DS: Data Data Completed and Pending Labs on day of discharge: Labs from last 24 hours 03/06/24 03:34 Hgb 11.3 L Hct 32.5 L Blood Type A Negative Antibody Screen Negative Screen Pending Baby's Blood Type Pending Baby's ANCELMO Pending Doses of RhIg Required Pending Discharge Plan Discharge Discharging Clinician: Selvin Yost Patient Disposition: Home, Self-Care Activity: pelvic rest Diet: regular Patient Instructions: Antibiotic Form Stand Alone Forms: General Discharge Information Follow-up/Referrals: Selvin Yost MD [Physician] - Discharge Medications: Continued cetirizine 10 mg tablet 10 mg PO DAILY PRN (Reason: allergy symptoms) Qty: 90 3RF Classic 28 mg iron- 800 mcg Tablet 1 tablet PO DAILY Date of admission: 03/05/24 00:01 Primary Care Provider: Monica Khoury Admitting Provider: Selvin Yost Attending physician on admission: Selvin Yost Condition: Stable
--- NOTE | 2024-03-06 10:54 | WPDANLDPN2 ---
Anes-Prog Note L&D Date/Time: 03/06/24 10:54 Comfortable throughout: labor and delivery Neuraxial method: epidural Epidural/Spinal procedure site: clean & non-tender Neuro status: Neuro function grossly intact. Cardiovascular status: normal Respiratory status: normal Airway patency: baseline Mental status: baseline Post-Op hydration status: normal Vital Signs: Last Vital Signs Temp 36.8 C 03/06/24 08:06 Pulse 85 03/06/24 08:06 Resp 16 03/06/24 08:06 BP 127/81 03/06/24 08:06 Pulse Ox 99 03/06/24 08:06 O2 Del Method Room Air 03/06/24 07:30 Pain score (VAS): 10 I/O: Intake & Output 03/05/24 03/06/24 03/06/24 23:59 07:59 15:59 Output Total 670 Balance -670 Post-procedural complaints: none Patient feedback: Patient satisfied with anesthetic care.
--- NOTE | 2024-03-06 11:15 | PC.NURSE ---
Consulted with mother concerning needs and she shared her ability to independently latch infant optimally without pain. Mother is feeding appropriately for growth of and understands stimulating to eat if needed. Infant has had appropriate feedings in the last 24 hours meets the outcomes for weight, output, blood sugar and jaundice at this time. Reinforced understanding of milk production, transition of milk, signs of adequate intake, transition of stool, prevention/relief of engorgement, plugged ducts, mastitis, responsive watching for feeding cues, the different methods of stimulating to breastfeed 1-3 hours after the start of the last feeding, community resources, and when to call a provider using the resource of the feeding sheet along with the mom and baby guide. Mother voiced understanding of the information shared, is confident to continue effectively her infant at home, when to call for assistance, denies any additional assistance or education at this time. Reported to the Primary RN.
[2024-03-06] MEDS: RHO(D) IMMUNE GLOBULIN 300 MCG/2 ML SYRINGE IM (14:07)
[2024-03-07 11:38] VITALS: BP 122/76; PULSE 87; RESP 18; TEMP 37.4; O2SAT 100
== END 2024-03-06 15:15 | disposition home or self-care (01) | DRG 560 ==
LOC: ANHLDR 00:05 → ANHOB2 18:41
PROVIDERS: Admitting Provider Obstetrics & Gynecology; PCP Nurse Practitioner Family; Referring Provider Advanced Practice Midwife; Visit Provider Obstetrics & Gynecology
DX: O69.81X0 Labor and delivery complicated by cord around neck, without compression, not applicable or unspecified (principal); O70.0 First degree perineal laceration during delivery; Z3A.39 39 weeks gestation of pregnancy; Z37.0 Single live birth
CPT/HCPCS: 36415; 85014; 85018; 85025; 85461; 86592; 86703; 86850; 86900; 86901; 90384; A9270; G0432; J2405; J2590; J2790; J2795; J3010; J7120

== ENCOUNTER 2024-12-16 09:05 | Emergency (ER) | payer OTHER, SELFPAY ==
[2024-12-16 09:13] VITALS: BP 152/93; PULSE 75; RESP 18; TEMP 36.4; O2SAT 100
--- NOTE | 2024-12-16 09:41 | ED.URI ---
HPI - URI/Sore Throat General Chief Complaint: Upper Respiratory Infection Stated Complaint: Sinus Infection Time Seen by Provider: 12/16/24 09:15 Source: patient and RN notes reviewed Mode of arrival: ambulatory Limitations: no limitations History of Present Illness HPI Narrative: 31-year-old female presents Express Care complaining upper respiratory symptoms approximately 5 days. Patient states she has sinus congestion, dry cough, mucopurulent nasal discharge. Patient said today she woke up with her symptoms suddenly worsening reporting worsening sinus congestion and drainage. Patient has tried ikue-gav-otovmwh cold and flu medication with some relief. Patient denies any fevers, body aches, chills, chest pain, difficulty breathing, wheezing, or any other symptoms. Related Data Home Medications ?Medication ?Instructions ?Recorded ?Confirmed ?Last Taken ?Type multivit,Ca,fro-kfwj-GL-guarana-caff 1 tablet PO DAILY 07/11/24 09/23/24 Unknown History 18 mg iron-400 mcg-180 mg tablet (One-A-Day Women's Active) Allergies Allergy/AdvReac Type Severity Reaction Status Date / Time No Known Allergies Allergy Verified 12/16/24 09:23 Review of Systems Review of Systems: CONSTITUTIONAL: Denies fever, chills, body aches, or sweats. EYES: Denies visual changes, redness, or discharge. ENT: Negative for rhinorrhea, sore throat, or otalgia. Positive for congestion and sinus pressure. CARDIOVASCULAR: Denies chest pain, palpitations, or edema. RESPIRATORY: Positive for cough. Negative for dyspnea. GASTROINTESTINAL: Denies abdominal pain, nausea, vomiting, or diarrhea. GENITOURINARY: Denies dysuria or hematuria. SKIN: Denies rash or itching. MUSCULOSKELETAL: Denies back pain, joint pain, or myalgia. NEUROLOGIC: Denies headache, numbness, or weakness. PSYCHIATRIC: Denies anxiety or depression. All other systems reviewed are negative, except as documented in HPI. [facility] Past Medical History Medical History Obesity Asthma Allergies Exercise-induced asthma ADHD Surgical History Surgical History S/P laparoscopic appendectomy 05/31/21 No significant past surgical history Family History Family History Mother Gallbladder disease Other Gallbladder disease Other Family history of malignant neoplasm of breast Hypertension Social History Social History Social History: 07/10/24 somewhat confident with medical forms Years smoked: 2 Smoking status: Never smoker Tobacco type: cigarettes Smoking end date: 09/04/13 Alcohol intake: never Substance use: never Substance use type: marijuana Other substance usage details: Daily Last use: 05/29/2021 Do You Feel Safe in your Home?: Yes Lack of Transportation: No Lack of Food: Never True Current Housing: I Have Housing Concerned About Future Housing: No Difficulty Paying Gas/Electric Bills: No Difficulty Paying for Meds: No Currently Unemployed: No Education: High School Diploma/GED Difficulty w/ Childcare or Family Care: No Living arrangements: alone Occupation/Education: occupation 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 There is no relevant family history pertinent to the patient complaint. Exam Narrative: GENERAL: This is a well-nourished, well-developed adult, in no apparent distress. They are non ill-appearing, nontoxic appearing. HEAD: normocephalic, atraumatic. EYES: Sclera clear/white. Vision is grossly intact. Conjunctiva normal bilaterally. Extraocular movements intact. EARS: External ears normal, auditory canals clear and without drainage, TMs without erythema or perforation. Hearing grossly intact. NOSE: External nose normal with no obvious nasal discharge, nasal turbinates erythematous with exudate present, no rhinorrhea. THROAT: Mucous membranes moist, posterior pharynx without redness swelling, no exudate. Uvula is midline. Postnasal drip present. NECK: Neck supple, non-tender without lymphadenopathy, masses or thyromegaly. CARDIOVASCULAR: Regular rate and rhythm without murmurs, gallops, or rubs. RESPIRATORY: Clear to auscultation. Breath sounds equal bilaterally. No wheezes, rales, or rhonchi. SKIN: warm, Dry, intact with no suspicious lesions or rash, good texture and turgor. NEURO: awake, alert, and oriented to person, place and time. There were no obvious focal neurologic abnormalities. EXTREMITIES: No joint tenderness, effusion, or edema noted. BACK: Nontender without deformity. Course Course Emergency Course: Portions of this record may have been created with voice recognition software Level of Care: Express Care Visit Vital Signs Vital signs: Vital Signs Temperature 97.5 F L 12/16/24 09:13 Pulse Rate 75 12/16/24 09:13 Respiratory Rate 18 12/16/24 09:13 Blood Pressure 152/93 H 12/16/24 09:13 Pulse Oximetry 100 12/16/24 09:13 Oxygen Delivery Room Air 12/16/24 09:13 Temperature 97.5 F L 12/16/24 09:13 Pulse Rate 75 12/16/24 09:13 Respiratory Rate 18 12/16/24 09:13 Blood Pressure 152/93 H 12/16/24 09:13 Pulse Oximetry 100 12/16/24 09:13 Oxygen Delivery Room Air 12/16/24 09:13 MDM - URI/Sore Throat MDM Narrative Medical decision making narrative: Given patient's sudden worsening symptoms is likely she has developed a bacterial sinusitis. Will treat with doxycycline. Patient states she is allergic to Augmentin. Will also prescribe benzonatate tablets as needed for cough. Discussed physical exam findings. Advised supportive measures and signs/symptoms to go to the ER. Pt is appropriate for outpt treatment and f/u. Differential Diagnosis Differential diagnosis: Likely upper respiratory infection, sinusitis and bronchitis Discharge Plan Discharge Clinical Impression: Sinusitis Qualifiers: Sinusitis location: unspecified location Chronicity: acute Recurrence: non-recurrent Qualified Code(s): J01.90 - Acute sinusitis, unspecified Patient Disposition: Home Condition: Stable Instructions: Antibiotic Form, Sinusitis (ED) Additional Instructions: Take the antibiotics as directed and complete the course even if you start to feel better. Please wear sunscreen if your going to be outside while taking doxycycline. You may use a Neti pot saline rinse 3 times a day with lukewarm distilled water Continue to take Tylenol or Motrin for pain. Use a humidifier or vaporizer at night. Take benzonatate tablets as needed for cough. Drink plenty of water. 8-10 glasses per day. Use flonase 2 times per day for 5 days then as needed Take mucinex 2 times per day and be sure to take with 8oz of water. Follow up with Primary provider in 3-5 days Please go to the ER if he develops any difficulty breathing, worsening symptoms, or any other concerns Patient Language: Greek Prescriptions: New doxycycline monohydrate 100 mg capsule 100 mg PO BID 7 Days Qty: 14 0RF benzonatate 100 mg capsule 100 mg PO TID PRN (Reason: cough) Qty: 20 0RF No Action albuterol sulfate 90 mcg/actuation HFA aerosol inhaler 2 inh inhalation Q4H PRN (Reason: shortness of breath or wheezing) Qty: 8.5 0RF fluticasone propionate [Flonase Allergy Relief] 50 mcg/actuation spray,suspension 1 spray intranasal BID Qty: 16 0RF Rx Instructions: administer into each nostril One-A-Day Women's Active 18 mg iron- 400 mcg-180 mg tablet 1 tablet PO DAILY cetirizine 10 mg tablet 10 mg PO DAILY PRN (Reason: allergy symptoms) Qty: 90 3RF dextroamphetamine-amphetamine [Adderall XR] 20 mg capsule,extended release 24hr 20 mg PO QAM Qty: 30 0RF Follow-up/Referrals: Monica Khoury APRN [Primary Care Provider] - Stand Alone Forms: Work/School Release IP Time of Disposition: 09:27
== END 2024-12-16 09:40 | disposition home or self-care (01) ==
PROVIDERS: PCP Nurse Practitioner Family
DX: J01.90 Acute sinusitis, unspecified (principal); J45.909 Unspecified asthma, uncomplicated; E66.9 Obesity, unspecified; Z68.30 Body mass index [BMI] 30.0-30.9, adult; Z87.891 Personal history of nicotine dependence
CPT/HCPCS: 99213; G0463

== ENCOUNTER 2025-02-02 01:09 | Day surgery (SDC) | payer OTHER, SELFPAY ==
[2025-01-26 11:54] VITALS: BMI 30.7
--- NOTE | 2025-01-26 12:01 | PC.NURSE ---
Report to the Outpatient Waiting Room, entrance under the green pavilion located off [address], at time _0915_ on date _[id number]_. Planned Procedure Time: _1115_.? Time changes happen often and if your time is changed the preop area will call you the afternoon before. - You and your visitor will be asked to self-screen and do not enter if you have any COVID symptoms. Please call surgeon if you need to reschedule. - A mask is optional within the hospital at this time. Patients may have clear liquids (water, carbonated beverages, clear teas, apple juice) until 3 hours prior to surgery with a maximum of 20 ounces. - No food from midnight until time of surgery and no smoking, or chewing tobacco (or any form of nicotine). No chewing gum, candy or mints. Take only the following medications with a SIP of water on the morning of surgery: ___Flonase and if needed may use Albuterol.____ DO NOT STOP ANY OF YOUR OTHER PRESCRIPTION MEDICATIONS PRIOR TO SURGERY EXCEPT THE FOLLOWING Hold all vitamins and supplements for 3 days per anesthesiologist. Medications to discontinue per physician Date to take last afqa__[id number]____ Please no make-up, nail malay, hairspray, perfume, deodorant, or body powder the day of surgery.? No jewelry (including any body piercings) or valuables the day of surgery, leave them at home.? Please take a shower or bath the night before, or the morning of, surgery with an antibacterial soap.? Wear comfortable, loose fitting clothing.? - Jewelry must be removed prior to entering the operating room.? Rings and piercings that are not removed may be cut off. - The hospital will not accept responsibility for valuables.? - Please leave all valuables, including medications, at home the day of surgery. If you are going home after surgery, a licensed truck driver heavy must drive you home.? - NO public transportation without another adult if you receive anesthesia. - We recommend that an adult stay with you for 24 hours following discharge. - We also recommend that you do not drive, make important decision, drink alcoholic beverages, or take any drugs that were not prescribed by your health care provider for at least 24 hours after your discharge time. Follow any additional instructions given to you from your surgeon. Telephone instructions given to __Amy__and asked if any additional questions and then verbalized understanding. Patient advised to call surgeon office or pre surgery nurse liaison [phone] if any additional questions.
[2025-02-02] VITALS (12 sets, daily range): BP systolic 103–136; BP diastolic 59–86; PULSE 54–90; RESP 12–16; TEMP 36.2–36.8; O2SAT 98–100
--- OUTSIDE RECORDS SUMMARY | 2025-02-02 01:12 | XMS_ITS | Clinical Summary ---
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 Name Role Phone Cordelia Lee MD Primary Care Provider [phone] Allergies No known active allergies Social History Tobacco Use Types Packs/Day Years Used Date Smoking Tobacco: Former Smokeless Tobacco: Never Alcohol Use Standard Drinks/Week Comments No 0 (1 standard drink = 0.6 oz pur e alcohol) AUDIT-C Answer Date Recorded Frequency of Alcohol Consumption Never 12/08/2018 Average Number of Drinks Not on file 019 Frequency of Binge Drinking Not on file 11/23 Comments No Sex and Gender Information Value Date Recorded Sex Assigned at Not on file Legal Sex Female 11:26 AM CDT Gender Identity Not on file Sexual Orientation Not on file Last Filed Vital Signs Vital Sign Reading Time Taken Comments Blood Pressure 122/73 12/08/2018 1:01 PM CDT Pulse 60 12/08/2018 1:01 PM CDT Temperature 36.4 C (97.6 F) 12/08/2018 11:30 AM CDT Respiratory Rate 18 12/08/2018 1:01 PM CDT Oxygen Saturation 98% 12/08/2018 1:01 PM CDT Inhaled Oxygen Concentration - - Weight 86.7 kg (191 lb 2 oz) 12/08/2018 11:30 AM CDT Height 175.3 cm (5' 9) 12/08/2018 11:30 AM CDT Body Mass Index 28.22 12/08/2018 11:30 AM CDT Plan of Treatment Health Maintenance Due Date Last Done Comments Cervical Cancer Screening Pa p Smear (Age 30 to 64) Every 3 Years 1991 Annual Physical 1994 Hepatitis C 2009 DTaP, Tdap and Td Vaccines ( 1 - Tdap) 2010 Hepatitis B Vaccines (1 of 3 - 19+ 3-dose series) 2010 HPV Vaccines (1 - 3-dose SCD M series) 2018 Cervical Cancer Screening Pa p with HPV Testing (Age 30 to 64) Every 5 Years 2021 Cervical Cancer Screening with HPV 2021 COVID-19 Vaccine ( - 2023-2 5 season) 2024 Meningococcal B Vaccine Aged Out No l onger eligible based on patient's age to complete this topic Meningococcal Vaccine Aged Out No pattie david eligible based on patient's age to complete this topic Pneumococcal Vaccine: Pediat rics (0 to 5 Years) and At-Risk Patients (6 to 49 Years) Aged Out No longer eligible b ased on patient's age to complete this topic RSV Immunizations Under 20 Months Aged Out No longer eligible based on patient's age to complete this topic Insurance [place] Care Teams Malthouse Laborer Relationship Specialty Start Date End Date Cordelia Lee MD [address] [place] [id number] PCP - General FAMILY PRACTICE 12/08/18
--- NOTE | 2025-02-02 07:31 | PM.IMHP ---
H&P: HPI History of Present Illness Date/Time: 02/02/25 07:31 Chief Complaint: desires sterilization Narrative: Patient is a 34 year old female who presents for bilateral salpingectomy. She has completed her childbearing and does not desire any future pregnancies. She desires permanent sterilization and understands that this is not reversible. She declines reversible methods of contraception. Denies headaches, abdominal pain, fevers, or chills. Review of Systems Review of Systems: All systems reviewed & are unremarkable except as noted in HPI and below PMFSH Past Medical History Medical History Obesity Asthma Allergies Exercise-induced asthma ADHD Surgical History Surgical History S/P laparoscopic appendectomy 05/31/21 No significant past surgical history Family History Family History Mother Gallbladder disease Other Gallbladder disease Other Family history of malignant neoplasm of breast Hypertension Social History Social History Social History: 07/10/24 somewhat confident with medical forms Years smoked: 2 Smoking status: Never smoker Tobacco type: cigarettes Smoking end date: 01/26/14 Alcohol intake: current Substance use: current Substance use type: marijuana Other substance usage details: Daily Last use: 05/29/2021 Do You Feel Safe in your Home?: Yes Lack of Transportation: No Lack of Food: Never True Current Housing: I Have Housing Concerned About Future Housing: No Difficulty Paying Gas/Electric Bills: No Difficulty Paying for Meds: No Currently Unemployed: No Education: High School Diploma/GED Difficulty w/ Childcare or Family Care: No Living arrangements: with family Occupation/Education: occupation 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[employer] Gender identity (if verbalized by the patient): Female Spiritual care concerns: No Agree to blood products: No Meds Home Medications and Allergies Home Medications ?Medication ?Instructions ?Recorded ?Confirmed ?Type multivit,Ca,bay-pfde-TJ-guarana-caff 1 tablet PO DAILY 07/11/24 01/26/25 History 18 mg iron-400 mcg-180 mg tablet (One-A-Day Women's Active) albuterol sulfate 90 mcg/actuation 2 inh inhalation Q4H PRN shortness 08/22/24 01/26/25 Rx aerosol inhaler of breath or wheezing #8.5 grams cetirizine 10 mg tablet 10 mg PO DAILY PRN allergy 11/24/24 01/26/25 Rx symptoms #90 tabs dextroamphetamine-amphetamine ER 25 mg PO QAM #30 caps 01/21/25 01/26/25 Rx 25 mg 24hr capsule,extend release (Adderall XR) fluticasone propionate 50 1 spray intranasal BID #16 grams 01/21/25 01/26/25 Rx mcg/actuation nasal spray,suspension (Flonase Allergy Relief) Lactobacillus 25 billion 1 cap PO DAILY 01/26/25 01/26/25 History cell-Bifido 25 billion btnl-NFQ-rinfr capsule cholecalciferol (vitamin D3) 125 5,000 unit PO DAILY 01/26/25 01/26/25 History mcg (5,000 unit) tablet (Vitamin D3) magnesium glycinate 120 mg (as 240 mg PO HS 01/26/25 01/26/25 History glycinate) capsule Allergies Allergy/AdvReac Type Severity Reaction Status Date / Time No Known Allergies Allergy Verified 01/26/25 11:51 Exam Const: General: comfortable and no acute distress Resp: Effort & Inspection: normal respiratory effort Cardio: Rate: regular rate Skin: General skin exam: normal color Extrem: General: normal to inspection Psych: Mental Status: mental status grossly normal Assessment and Plan Assessment and plan (1) Encounter for sterilization: Code(s): Z30.2 - Encounter for sterilization Status: Acute Assessment and Plan: - patient has completed childbearing and does not desire future pregnancies - desires permanent sterilization and declines reversible methods of contraception - risks and benefits discussed with patient - will proceed with laparoscopic bilateral salpingectomy
[2025-02-02] MEDS: ACETAMINOPHEN 500 MG TABLET 1000 MG PO (10:00)
[2025-02-02] MEDS: KETOROLAC 15 MG/ML VIAL (*BKC) IV PUSH (10:05)
[2025-02-02] MEDS: SCOPOLAMINE 1 MG PATCH 1 PATCH TRANSDERM (10:23)
--- NOTE | 2025-02-02 10:41 | WPDHPUPDATE1 ---
History and Physical Update Update Date/Time: 02/02/25 10:41 History and Physical has been reviewed, including an updated exam of the patient. There are NO changes in the patient's condition. Risks, benefits, and alternatives have been discussed and questions answered. Patient agrees to proceed with procedure.
--- NOTE | 2025-02-02 10:45 | P.PNAN_ITS ---
Anes - Initial Pre Proc Eval Procedure: Operation Date: 02/02/25 11:15 Proposed Procedures p Laparoscopic Bilateral Salpingectomy - Cj Cullen MD Date/Time: 02/02/25 10:45 Surgeon: Cj Cullen MD Pre Op Diagnosis: Desires Sterilization Patient Data Age: 34 Gender: F Height: 1.75 m Weight: 94.3 kg Last Vital Signs Temp 36.2 C L 02/02/25 09:41 Pulse 70 02/02/25 09:41 Resp 16 02/02/25 09:41 BP 127/73 02/02/25 09:41 Pulse Ox 100 02/02/25 09:41 O2 Del Method Room Air 02/02/25 09:41 Allergies Allergy/AdvReac Type Severity Reaction Status Date / Time No Known Allergies Allergy Verified 02/02/25 10:09 Home Medications ?Medication ?Instructions ?Recorded ?Confirmed ?Type multivit,Ca,uts-gvur-YR-guarana-caff 1 tablet PO DAILY 07/11/24 02/02/25 History 18 mg iron-400 mcg-180 mg tablet (One-A-Day Women's Active) albuterol sulfate 90 mcg/actuation 2 inh inhalation Q4H PRN shortness 08/22/24 01/26/25 Rx aerosol inhaler of breath or wheezing #8.5 grams cetirizine 10 mg tablet 10 mg PO DAILY PRN allergy 11/24/24 01/26/25 Rx symptoms #90 tabs dextroamphetamine-amphetamine ER 25 mg PO QAM #30 caps 01/21/25 02/02/25 Rx 25 mg 24hr capsule,extend release (Adderall XR) fluticasone propionate 50 1 spray intranasal BID #16 grams 01/21/25 02/02/25 Rx mcg/actuation nasal spray,suspension (Flonase Allergy Relief) Lactobacillus 25 billion 1 cap PO DAILY 01/26/25 02/02/25 History cell-Bifido 25 billion qnsp-BLR-gilit capsule cholecalciferol (vitamin D3) 125 5,000 unit PO DAILY 01/26/25 02/02/25 History mcg (5,000 unit) tablet (Vitamin D3) magnesium glycinate 120 mg (as 240 mg PO HS 01/26/25 02/02/25 History glycinate) capsule ibuprofen 600 mg tablet 600 mg PO Q6H PRN pain #30 tabs 02/02/25 Rx Patient hx anesthesia problems: post op nausea/vomiting Family hx anesthesia problems: none Results Review: All pre-operative results and documents have been reviewed as part of the pre- operative evaluation. COUNT INCLUDES THE [facility] Past Medical History Medical History Obesity Asthma Allergies Exercise-induced asthma ADHD Surgical History Surgical History S/P laparoscopic appendectomy 05/31/21 No significant past surgical history Family History Family History Mother Gallbladder disease Other Gallbladder disease Other Family history of malignant neoplasm of breast Hypertension Social History Social History Social History: 07/10/24 somewhat confident with medical forms Years smoked: 2 Smoking status: Never smoker Tobacco type: cigarettes Smoking end date: 01/26/14 Alcohol intake: current Substance use: current Substance use type: marijuana Other substance usage details: Daily Last use: 05/29/2021 Do You Feel Safe in your Home?: Yes Lack of Transportation: No Lack of Food: Never True Current Housing: I Have Housing Concerned About Future Housing: No Difficulty Paying Gas/Electric Bills: No Difficulty Paying for Meds: No Currently Unemployed: No Education: High School Diploma/GED Difficulty w/ Childcare or Family Care: No Living arrangements: with family Occupation/Education: occupation 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[employer] Gender identity (if verbalized by the patient): Female Spiritual care concerns: No Agree to blood products: No Anes - Eval Final PreProcedure Day of Procedure 02/02/25 10:45 Patient weight: obese Heart: regular rate and rhythm Lungs: clear to auscultation Airway: Mallampati scale class II Neurological: alert and oriented Last oral intake: >/= 8 hours ASA classification: III Emergent: no Anesthetic plan: proceed Anesthesia type and monitoring: general ETT and standard monitoring Results Review: All pre-operative results and documents have been reviewed as part of the pre- operative evaluation. Informed Consent: The patient's anesthetic plan and its attendant risks and benefits were discussed with the patient/family/POA. Questions were solicited and answers provided to the satisfaction of the patient/family/POA.
--- NOTE | 2025-02-02 11:23 | S_PTH ---
PATIENT: Didi Gomez LOC: [facility] U#:[id number] AGE/SX: 34/F ROOM: RE02/02/[address]: Cj Cullen MD : 1990 BED: DIS: 02/02/2025 SPEC #: [id number] RECD: 02/02/25 12:04 STATUS: MANUELA VILLARREAL #: [id number] THOMAS: 02/02/25 11:[address]: Cj Cullen DEPT: [facility] Surgical RECD BY: Lorie Maldonado ENTERED: 02/02/25 12:04 SP TYPE: Surgical OTHR DR: Monica Khoury APRN Tissues: A - Fallopian Tube Bilateral Procedures: Gross and Microscopic Level 2 Hematoxylin and Eosin Stain
--- NOTE | 2025-02-02 11:34 | W.PM.PROC2 ---
Procedure Note - Detailed Date of Procedure 02/02/25 Pre-op Diagnosis Desires Sterilization Post-op Diagnosis Same Procedure Performed laparoscopic bilateral salpingectomy Surgeon Cj Cullen MD Anesthesia General Indications desires permanent sterilization Findings normal appearing uterus, bilateral tubes and bilateral ovaries Description of Procedure With IV fluids infusing, the patient was taken to the operating room. The patient was placed in supine position. General anesthesia with endotracheal intubation was given. A time-out took place. The patient was placed in dorsal lithotomy position using Jemal stirrups and she was prepped and draped in the usual sterile fashion. The bladder was drained using a red rubber catheter. A sterile speculum was placed vaginally, the anterior lip of the cervix was grasped with a single-tooth tenaculum and the acorn uterine manipulator was placed without difficulty. The speculum was removed. The surgeon's gloves were changed and attention was turned to the abdomen. A 5 mm incision was made in the umbilicus. Under direct visualization with the scope, the umbilical port was inserted without difficulty. Another two trocars were placed under direct visualization in the left upper and left lower quadrants. The patient was placed in Trendelenburg and inspection of the pelvis noted the above findings. Appropriate pictures were taken. Using the LigaSure device, a left salpingectomy was performed in the usual fashion. Care was taken to avoid the IP ligament. The salpingectomy went smoothly. The same procedure was repeated on the right side. The instruments were all removed from the abdomen and the CO2 gas was allowed to escape. The three skin incisions were reapproximated with 4-0 Polysorb in a subcuticular manner, followed by skin glue. The acorn manipulator and single tooth tenaculum was removed from the uterus and cervix, respectively. The tenaculum sites were hemostatic. All instruments were removed from the vagina. At the end of the case, instrument, sponge and needle counts were correct x 2. The patient was awakened from general anesthesia and was taken to PACU in stable condition. Estimated Blood Loss 10 Pathology Yes Complications No immediate complications Condition Stable Disposition Same day
[2025-02-02] MEDS: LACTATED RINGERS 1,000 ML 30 ML IV CONT (11:37)
[2025-02-02 11:52] LABS: BEDSIDEPREGUCG Negative (Negative)
[2025-02-02] MEDS: ONDANSETRON INJ 4 MG/2 ML VIAL IV PUSH (13:20)
[2025-02-02] MEDS: oxyCODONE HCL (*CRX) 5 MG TAB IR PO (14:00)
== END 2025-02-02 14:55 | disposition home or self-care (01) ==
PROVIDERS: PCP Nurse Practitioner Family; Visit Provider Obstetrics & Gynecology
PROC: (CPT 49320; principal; 2025-02-02 11:15)
DX: Z30.2 Encounter for sterilization (principal); J45.909 Unspecified asthma, uncomplicated; F90.9 Attention-deficit hyperactivity disorder, unspecified type; F12.90 Cannabis use, unspecified, uncomplicated; E66.9 Obesity, unspecified; Z68.30 Body mass index [BMI] 30.0-30.9, adult; Z79.51 Long term (current) use of inhaled steroids; Z98.890 Other specified postprocedural states; Z80.3 Family history of malignant neoplasm of breast
CPT/HCPCS: 58661; 88302; A9270; J1100; J1885; J2250; J2270; J2405; J2704; J7120

== ENCOUNTER 2025-02-26 15:15 | Emergency (ER) | payer OTHER, SELFPAY ==
--- NOTE | 2025-02-26 15:18 | ED_ITS ---
HPI - Female Genitourinary General Chief complaint: Urogenital-Female Stated complaint: urinary irritation Time Seen by Provider: 02/26/25 15:45 Source: patient Mode of arrival: ambulatory Limitations: no limitations History of Present Illness HPI Narrative: Didi is a 34-year-old female patient presenting to the clinic today with complaints of possible UTI x5 days. She reports she has been having some discomfort in the pelvic/bladder area, urinary incontinence, urinary frequency, and urinary urgency. She recently had tubal ligation laparoscopic on February 02 2025. She had urinary cath during that procedure. Denies any vaginal discharge or odor. She denies any fevers or chills. Related Data Home Medications ?Medication ?Instructions ?Recorded ?Confirmed ?Last Taken ?Type multivit,Ca,alz-kugm-RR-guarana-caff 1 tablet PO DAILY 07/11/24 02/02/25 01/30/25 History 18 mg iron-400 mcg-180 mg tablet (One-A-Day Women's Active) cholecalciferol (vitamin D3) 125 5,000 unit PO DAILY 0 01/26/25 02/02/25 01/30/25 History mcg (5,000 unit) tablet (Vitamin D3) magnesium glycinate 120 mg (as 240 mg PO HS 01/26/25 0 02/02/25 01/30/25 History glycinate) capsule Allergies Allergy/AdvReac Type Severity Reaction Status Date / Time No Known Allergies Allergy Verified 02/26/25 15:42 Review of Systems Review of Systems: Pertinent positives per HPI. Patient denies any fever, chills, rash, headache, visual changes, dizziness, cough, runny nose, sore throat, shortness of breath, chest pain, palpitations, nausea, vomiting, diarrhea, constipation, abdominal pain. [facility] Past Medical History Medical History Obesity Asthma Allergies Exercise-induced asthma ADHD Surgical History Surgical History H/O tubal ligation 02/02/25 S/P laparoscopic appendectomy 05/31/21 No significant past surgical history Family History Family History Mother Gallbladder disease Other Gallbladder disease Other Family history of malignant neoplasm of breast Hypertension Social History Social History Social History: 07/10/24 somewhat confident with medical forms Years smoked: 2 Smoking status: Never smoker Tobacco type: cigarettes Smoking end date: 01/26/14 Alcohol intake: current Substance use: current Substance use type: marijuana Other substance usage details: Daily Last use: 05/29/2021 Do You Feel Safe in your Home?: Yes Lack of Transportation: No Lack of Food: Never True Current Housing: I Have Housing Concerned About Future Housing: No Difficulty Paying Gas/Electric Bills: No Difficulty Paying for Meds: No Currently Unemployed: No Education: High School Diploma/GED Difficulty w/ Childcare or Family Care: No Living arrangements: with family Occupation/Education: occupation 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 There is no relevant family history pertinent to the patient complaint. Exam Narrative: General: Well-developed, obese, in no apparent distress. Head: Normocephalic, atraumatic. Cardio: Regular rate and rhythm, s1 and s2 normal, no murmur appreciated. Resp: Clear to auscultation bilaterally, no rhonchi, rales, wheezing or rubs. Abdomen: Soft, pliable, bowel sounds present in all quadrants, suprapubic tender to palpation, no organomegly, no CVAT tenderness. Course Course Emergency Course: Portions of this record may have been created with voice recognition software. Level of Care: Express Care Visit Vital Signs Vital signs: Vital Signs Temperature 36.3 C L 02/26/25 15:39 Pulse Rate 83 02/26/25 15:39 Respiratory Rate 18 02/26/25 15:39 Blood Pressure 121/63 02/26/25 15:39 Pulse Oximetry 100 02/26/25 15:39 Oxygen Delivery Room Air 02/26/25 15:39 Temperature 36.3 C L 02/26/25 15:39 Pulse Rate 83 02/26/25 15:39 Respiratory Rate 18 02/26/25 15:39 Blood Pressure 121/63 02/26/25 15:39 Pulse Oximetry 100 02/26/25 15:39 Oxygen Delivery Room Air 02/26/25 15:39 Vital signs reviewed MDM - Female Genitourinary MDM Narrative Medical decision making narrative: At the time of visit patient is resting comfortably on the exam table. Patient appears to be nontoxic. Complaints of possible UTI x5 days. She reports she has been having some discomfort in the pelvic/bladder area, urinary incontinence, urinary frequency, and urinary urgency. She recently had tubal ligation laparoscopic on February 02 2025. She had urinary cath during that procedure. Denies any vaginal discharge or odor. She denies any fevers or chills. On exam patient has suprapubic tenderness. No CVAT tenderness, bowel sounds present all quadrant. No history of kidney stones. Urine dip ordered Labs: Urinalysis obtained and positive for trace of leukocytes and trace of blood. We will send for culture Plan: I suspect patient likely has a UTI. Prescription for was sent to the pharmacy. Supportive measures were discussed with the patient and they voiced understanding discharge instructions and agrees to treatment plan. Return precautions reviewed Differential Diagnosis Differential diagnosis: Likely urinary tract infection and cystitis Lab Data Labs: Lab Results 02/26/25 Range/Units 16:02 POC Urine Color Yellow POC Urine Clarity Clear POC Urine pH 7.0 POC Ur Specif [place] 1.015 POC Urine Protein Negative (Negative) POC Ur Glucose (UA) Negative (Negative) POC Urine Ketones Negative (Negative) POC Urine Blood Trace (Negative) POC Urine Nitrite Negative (Negative) POC Urine Bilirubin Negative (Negative) POC Urine Urobilinogen 0.2 POC U Leukocyte Esteras Trace (Negative) Discharge Plan Discharge Clinical Impression: UTI (urinary tract infection) Qualifiers: Urinary tract infection type: acute cystitis Hematuria presence: without hematuria Qualified Code(s): N30.00 - Acute cystitis without hematuria Patient Disposition: Home Condition: Stable Instructions: Antibiotic Form, Urinary Tract Infection in Women (ED) Additional Instructions: Urine positive for trace of leukocyte and trace of blood. We will send urine for culture Take Bactrim as prescribed Increase fluids and stay well hydrated Wipe front to back. May use wet wipes. Avoid tub baths If sexually active- pee before and after intercourse. Wear cotton panties Avoid tight clothing up against the genitals Follow up with your PCP in 1 week if symptoms persist. Patient Language: Wolof Prescriptions: New sulfamethoxazole-trimethoprim [Bactrim DS] 800-160 mg tablet 1 tablet PO Q12H 3 Days Qty: 6 0RF No Action albuterol sulfate 90 mcg/actuation HFA aerosol inhaler 2 inh inhalation Q4H PRN (Reason: shortness of breath or wheezing) Qty: 8.5 0RF One-A-Day Women's Active 18 mg iron- 400 mcg-180 mg tablet 1 tablet PO DAILY fluticasone propionate [Flonase Allergy Relief] 50 mcg/actuation spray,suspension 1 spray intranasal BID Qty: 16 3RF Rx Instructions: administer into each nostril cholecalciferol (vitamin D3) [Vitamin D3] 125 mcg (5,000 unit) tablet 5,000 unit PO DAILY magnesium glycinate 120 mg capsule 240 mg PO HS cetirizine 10 mg tablet 10 mg PO DAILY PRN (Reason: allergy symptoms) Qty: 90 3RF dextroamphetamine-amphetamine [Adderall XR] 25 mg capsule,extended release 24hr 25 mg PO QAM Qty: 30 0RF Follow-up/Referrals: Monica Khoury APRN [Primary Care Provider, Family Practice] Time of Disposition: 16:00 Quality NIHSS Nursing Documentation ED NIHSS nursing documentation: reviewed/agree
--- OUTSIDE RECORDS SUMMARY | 2025-02-26 15:18 | XMS_ITS | Clinical Summary ---
Author Organization [facility] Address [address] [place] [id number] Care Team Providers Care Prospecting Driller Helper Name Role Phone Cordelia Lee MD Primary Care Provider [phone] Allergies No known active allergies Social History [...] patient's age to complete this topic Insurance SULLY Care Teams Prospecting Driller Helper Relationship Specialty Start Date End Date Cordelia Lee MD [address] [place] [id number] PCP - General FAMILY PRACTICE 12/08/18
[2025-02-26 15:39] VITALS: BP 121/63; PULSE 83; RESP 18; TEMP 36.3; O2SAT 100
[2025-02-26 16:04] LABS: EDUAAPPEAR Clear; EDUABILI Negative (Negative); EDUABLOOD Trace (Negative); EDUACOLOR1 Yellow; EDUAGLUCOSE Negative (Negative); EDUAKETONE Negative (Negative); EDUALEUKO Trace (Negative); EDUANITRATE Negative (Negative); EDUAPH 7.0; EDUAPROTEIN Negative (Negative); EDUASPGRAVITY 1.015; EDUAUROBILI 0.2
== END 2025-02-26 16:08 | disposition home or self-care (01) ==
PROVIDERS: Emergency Provider Nurse Practitioner Family; PCP Nurse Practitioner Family
DX: N30.00 Acute cystitis without hematuria (principal); Z87.891 Personal history of nicotine dependence; J45.909 Unspecified asthma, uncomplicated; E66.9 Obesity, unspecified; Z68.30 Body mass index [BMI] 30.0-30.9, adult
CPT/HCPCS: 81003; 87086; 99213; G0463

== ENCOUNTER 2025-03-18 15:03 | Emergency (ER) | payer OTHER, SELFPAY ==
--- NOTE | ~2025-03-18 | XR_ITS ---
[XR ribs RT 2V w CXR 2V ] INDICATION: Right rib pain TECHNIQUE: Frontal projection of the upper right ribs, frontal projection of the lower right ribs, oblique projection of all the right ribs, frontal inspiratory chest x-ray for interpretation. FINDINGS: There are no displaced rib fractures identified. There are no soft tissue abnormality seen. The lungs are clear. IMPRESSION: 1:No acute displaced rib fractures. Reviewed, dictated and finalized at location O.
--- OUTSIDE RECORDS SUMMARY | 2025-03-18 15:05 | XMS_ITS | Data Portability ---
Author Organization [facility], [place] Address [address] [address] [place] [address] Assessment No assessment recorded. Plan of Treatment Reminders Order Date Submit Date Provider Last Modified By Organization Details Last Modified Time Details Appointments None recorded. Lab None recorded. Referral None recorded. Procedures None recorded. Surgeries salpingecto my, laparoscopi c (SURG) 2023 025 [facility], [address], [place], [address], 5 12:37:42 Imaging US, transvagina l 2023 024 [email or web address] [place], [address], [address], [place], [address], 4 18:33:58 Medication Orders oxycodone 5 mg tablet 2024 025 [id number], [address], [place], [id number], 5 10:47:24 Patient TargetsNo targets recorded. Patient InstructionsNo instructions recorded. Reason for Referral None Reported. Results Created Date Observation Date Name Description Value Unit Range Abnormal Flag Note LastModifiedBy Organization Detail LastModifiedTime 05/05/20 24 05/05/2024 US, trans vagin al No observ ation record ed. [email or web address] [place] [address], [place], [address], 05/05/2024 18:55:29 05/05/20 24 05/05/2024 US, trans vagin al No observ ation record ed. [email or web address] [facility] [address], [place], [address], 05/08/2024 11:13:12 Result Notes None recorded. Problems Name Problem SNOMED Code Status Onset Date Resolution Date Notes Provider Name and Address Organization Details Recorded Time History of asthma 009168118 Completed exercise -has inhaler [facility] 4 12:28:01 RhD negative [id number] Completed 12/19/23 administ erepaulo [facility] 4 12:28:01 History of loop electros urgical excision procedur e [id number] 102 Completed [facility] 4 12:28:01 Pregnanc y [id number] Completed 202303/06/2024 Yeyo [facility] 4 12:22:42 COVID-19 [id number] Completed 2023 serial growth, ASA Johanna [facility] 4 12:28:01 Problem Notes None recorded. Procedures Surgical History Date Name Laterality Status Provider Name and Address Organization Details Recorded Time 02/03/20 25 SALPINGECTOMY, LAPAROSCOPIC (SURG) completed Not Available [facility] 02/02/2025 12:37:42 11/02/19 23 Date of Last Pap Smear completed [facility] 07/30/2023 13:57:54 06/25/19 22 Appendectomy completed [facility] 11/01/2022 10:31:12 04/29/20 12 Colposcopy completed [facility] 09/02/2020 15:04:10 04/29/20 12 Colposcopy completed [facility] 09/02/2020 15:06:51 06/25/19 04 extraction of wisdom tooth completed [facility] 04/02/2024 13:00:58 Imaging Results None recorded. Procedure Notes None recorded. Medical Equipment None Reported. Allergies No known drug allergies Medications Name Sig Start Date Stop Date Status Note LastModified by Organization Details LastModified Time cyclobenz aprine 10 mg tablet TAKE 1 TABLET BY MOUTH THREE TIMES DAILY NEEDED 07/30 completed Not Available Not Available Not Available amoxicill in 500 mg capsule TAKE 1 CAPSULE BY MOUTH THREE TIMES DAILY 11/01 completed Not Available Not Available Not Available prednison e 10 mg tablet 11/01 completed Not Available Not Available Not Available doxycycli ne hyclate 100 mg capsule TAKE 1 CAPSULE BY MOUTH TWICE DAILY FOR 10 DAYS 07/30 completed Not Available Not Available Not Available cetirizin e 10 mg tablet TAKE 1 TABLET BY MOUTH DAILY NEEDED FOR ALLERGY SYMPTOMS active Not Available Not Available No t Available azithromy flaco 250 mg tablet take 2 tablet by oral route every day for 1 day then 1 tablet (250 mg) by oral route once daily for 4 days 11/01 completed Not Available Not Available Not Available nystatin 100,000 unit/gram topical ointment APPLY TOPICALL Y TO THE AFFECTED AREA TWICE DAILY 11/01 completed Not Available Not Available Not Available fluconazo le 150 mg tablet TAKE 1 TABLET BY MOUTH 1 TIME. REPEAT IN 7 DAYS IF SYMPTOMS PERSIST 11/01 completed Not Available Not Available Not Available hydrocodo ne 5 mg-acetam inophen 325 mg tablet TAKE 1 TABLET BY MOUTH EVERY 4-6 HOURS NEEDED FOR PAIN 11/01 completed Not Available Not Available Not Available prednison e 20 mg tablet TAKE 2 TABLETS BY MOUTH DAILY FOR 5 DAYS 07/30 completed Not Available Not Available Not Available terconazo le 0.8 % vaginal cream Insert 1 applicat orful every day by vaginal route for 3 days. 11/01 completed Not Available Not Available Not Available phentermi ne 37.5 mg tablet TAKE 1 TABLET BY MOUTH EVERY DAY 11/01 completed Not Available Not Available Not Available fexofenad ine 180 mg tablet TAKE 1 TABLET BY MOUTH EVERY DAY 11/01 completed Not Available Not Available Not Available Reglan 10 mg tablet take 1 tablet (10MG) by oral route every 6 hours as needed for nausea 09/01 completed Prescrib ed Elsewher e: No Locat ion: [facility] odify By: mic brizuelaunter DateTime : 12/26/19 13 11:15:00 AM Not Available Not Available Not Available amoxicill in 500 mg tablet TAKE 1 TABLET BY MOUTH TWICE DAILY FOR 10 DAYS 01/24 completed Not Available Not Available Not Available nystatin- triamcino lone 100,000 unit/gram -0.1 % topical ointment APPLY TO THE AFFECTED AREA(S) BY TOPICAL ROUTE 2 TIMES PER DAY FOR 5 DAYS 11/01 completed Not Available Not Available Not Available Metrogel Vaginal 0.75 % (37.5 mg/5 gram) insert 1 applicat orful by vaginal route every day at bedtime 09/20 completed Prescrib ed Elsewher e: No Locat ion: [facility] odify By: alexia quintero DateTime : 09/21/19 16 10:18:55 AM Not Available Not Available Not Available famotidin e 20 mg tablet TAKE 1 TABLET BY MOUTH EVERY DAY 07/30 completed Not Available Not Available Not Available dextroamp hetamine- amphetami ne ER 20 mg 24hr capsule,e xtend release TAKE 1 CAPSULE BY MOUTH EVERY MORNING active Not Available Not Available No t Available Flagyl 500 mg tablet take 1 tablet by oral route every 12 hours 05/28 completed Prescrib ed Elsewher e: No Locat ion: [facility] odify By: jakob brizuelauntileana DateTime : 09/21/19 16 10:25:08 AM Not Available Not Available Not Available benzonata te 100 mg capsule TAKE 1 CAPSULE BY MOUTH THREE TIMES DAILY NEEDED FOR COUGH 12/24 completed Not Available Not Available Not Available doxycycli ne monohydra te 100 mg capsule TAKE 1 CAPSULE BY MOUTH TWICE DAILY FOR 7 DAYS 12/24 completed Not Available Not Available Not Available cephalexi n 500 mg capsule TAKE 1 CAPSULE BY MOUTH THREE TIMES DAILY FOR 7 DAYS 07/30 completed Not Available Not Available Not Available Prozac 20 mg capsule take 1 capsule by oral route every day in the morning 05/28 completed Prescrib ed Elsewher e: No [facility] By: jakob tavarez DateTime : 08/17/19 16 04:45:00 PM Not Available Not Available Not Available Cipro 500 mg tablet take 1 tablet by oral route every 12 hours 04/07 completed Prescrib ed Elsewher e: No Locat ion: [facility] odify By: alexia quintero DateTime : 02/17/20 15 10:59:13 AM Not Available Not Available Not Available triamcino lone acetonide 0.1 % topical ointment APPLY THIN LAYER TOPICALL Y TO THE AFFECTED AREA TWICE DAILY 11/01 completed Not Available Not Available Not Available dextroamp hetamine- amphetami ne 20 mg tablet TAKE 1 TABLET BY MOUTH EVERY DAY DIRECTED 10/02 completed Not Available Not Available Not Available dextroamp hetamine- amphetami ne 15 mg tablet TAKE 1 TABLET BY MOUTH EVERY DAY 07/30 completed Not Available Not Available Not Available amoxicill in 250 mg capsule take 2 capsule by oral route 4 times every day 09/04 completed Prescrib ed Elsewher e: Yes [facility] By: jakob tavarez DateTime : 07/10/19 19 08:30:00 AM Not Available Not Available Not Available monteluka st 10 mg tablet TAKE 1 TABLET BY MOUTH EVERY DAY 07/30 completed Not Available Not Available Not Available azelastin e 137 mcg (0.1 %) nasal spray USE 2 SPRAYS IN EACH NOSTRIL TWICE DAILY 07/30 completed Not Available Not Available Not Available ibuprofen 600 mg tablet TAKE 1 TABLET BY MOUTH EVERY 6 HOURS NEEDED FOR PAIN active Not Available Not Available No t Available methylpre dnisolone 4 mg tablets in a dose pack FOLLOW PACKAGE DIRECTIO NS 12/24 completed Not Available Not Available Not Available albuterol sulfate HFA 90 mcg/actua tion aerosol inhaler INHALE 2 PUFFS BY MOUTH EVERY 4 HOURS NEEDED FOR SHORTNES S OF BREATH OR WHEEZING active Not Available Not Available No t Available Vitamin D2 1,250 mcg (50,000 unit) capsule take 1 capsule ([id number] ITS) by oral route every week 09/29 completed Prescrib ronny [facility] e: No Locat ion: [facility] odify By: meliton brizuelauntileana DateTime : 02/01/20 09:55:42 AM Not Available Not Available Not Available fluticaso ne propionat e 50 mcg/actua tion nasal spray,elisabeth pension SHAKE LIQUID AND USE 1 SPRAY IN EACH NOSTRIL TWICE DAILY active Not Available Not Available No t Available sertralin e 50 mg tablet TAKE 1 TABLET BY MOUTH DAILY 07/30 completed Not Available Not Available Not Available loratadin e 10 mg tablet TAKE 1 TABLET BY MOUTH EVERY DAY IN THE MORNING 11/01 completed Not Available Not Available Not Available oxycodone 5 mg tablet TAKE 1 TABLET BY MOUTH EVERY 4 HOURS NEEDED active Not Available Not Available No t Available neomycin- polymyxin -hydrocor t 3.5 mg-10,000 unit/mL-1 % ear drops,elisabeth p SHAKE LIQUID AND INSTILL 3 TO 4 DROPS TO AFFECTED EAR THREE TIMES DAILY 07/30 completed Not Available Not Available Not Available dextroamp hetamine- amphetami ne ER 15 mg 24hr capsule,e xtend release TAKE 1 CAPSULE BY MOUTH EVERY DAY 11/01 completed Not Available Not Available Not Available dextroamp hetamine- amphetami ne ER 25 mg 24hr capsule,e xtend release TAKE 1 CAPSULE BY MOUTH EVERY MORNING active Not Available Not Available No t Available etonogest rel 0.12 mg-ethiny l estradiol 0.015 mg/24 hr vaginal ring insert 1 vaginal ring by vaginal route every month leave in place for 3 weeks, remove for 1 week 07/30 completed Not Available Not Available Not Available escitalop carlos 10 mg tablet TAKE 1 TABLET BY MOUTH EVERY DAY 11/01 completed Not Available Not Available Not Available cyclobenz aprine 5 mg tablet TAKE 1 TABLET BY MOUTH THREE TIMES DAILY NEEDED 11/01 completed Not Available Not Available Not Available Tindamax 500 mg tablet take 2 Tablet (1G) by oral route every day with food 05/09 completed Prescrib ed Elsewher e: No [facility] By: dimple quintero DateTime : 04/17/20 12 12:22:22 PM Not Available Not Available Not Available duloxetin e 30 mg capsule,d elayed release 11/01 completed Not Available Not Available Not Available Adderall 07/30 completed Not Available Not Available Not Available Symbicort 160 mcg-4.5 mcg/actua tion HFA aerosol inhaler INHALE 2 PUFFS BY MOUTH TWICE DAILY active Not Available Not Available No t Available cholecalc iferol (vitamin D3) 1,250 mcg (50,000 unit) capsule TAKE 1 CAPSULE BY MOUTH WEEKLY 07/30 completed Not Available Not Available Not Available Lo Loestrin Fe 1 mg-10 mcg (24)/10 mcg (2) tablet take 1 tablet by oral route every day 04/11 completed Prescrib ed Elsewher e: No Locat ion: [facility] odify By: morgan murphy DateTime : 12/13/19 12 02:15:00 PM Not Available Not Available Not Available Triveen-D uo DHA 29 mg-1 mg-400 mg oral pack take 2 by Oral route every day for 30 days 01/23 completed Prescrib ed Elsewher e: No Locat ion: [facility] odify By: mic tavarez DateTime : 12/26/19 13 11:15:00 AM Not Available Not Available Not Available Lomedia 24 Fe 1 mg-20 mcg (24)/75 mg (4) tablet take 1 tablet by oral route every day 10/12 completed Prescrib ed Elsewher e: No Locat ion: [facility] odify By: phyllis quintero DateTime : 04/03/20 14 01:15:00 PM Not Available Not Available Not Available Flonase Allergy Relief 07/30 completed Not Available Not Available Not Available Vitals Date Recorded Body height Body mass index (BMI) Body weight Systolic And Diastolic Provider Name and Address Organization Details Last Updated DateTime 12/24/2024 175.26 cm 31.2 kg/m2 76841.99 g 114/77 mm[Hg] Catherine [facility] 12/24/2024 10:30:07 Date Recorded Body height Body mass index (BMI) Body weight Systolic And Diastolic Provider Name and Address Organization Details Last Updated DateTime 02/09/2025 175.26 cm 30.6 kg/m2 49740.62 g 114/72 mm[Hg] Catherine [facility] 02/09/2025 17:26:35 Date Recorded Body height Body mass index (BMI) Body weight Systolic And Diastolic Provider Name and Address Organization Details Last Updated DateTime 05/12/2024 175.26 cm 33.8 kg/m2 803847.65 g 136/76 mm[Hg] Tiffanie [facility] 05/12/2024 11:34:13 Social History Question Answer Notes LastModified by Organizat ion Details LastModified Time Tobacco Smoking Status Former Smoker Esthela [facility]alyani [facility] 11/01/2022 10:31:00 Do You Have An Advance Directive? No Information n ot available 01/24/2022 Are You Blind Or Do You Have Difficulty Seeing? No Information n ot available 09/30/2021 What Is Your Level Of Caffeine Consumption? Moderate Information not available 01/24/2022 How Much Tobacco Do You Chew? None Information not available 01/24/2022 In The 14 Days Before Symptom Onset, Have You Had Close Contact With A Laboratory-confirm ed COVID-19 While That Case Was Ill? No Information n ot available 01/24/2022 In The 14 Days Before Symptom Onset, Have You Had Close Contact With A Person Who Is Under Investigation For COVID-19 While That Person Was Ill? No Information not available 01/24/2022 Have You Been To An Area Known To Be High Risk For COVID-19? No Information not available 01/24/2022 Are You Deaf Or Do You Have Serious Difficulty Hearing? No Information not available 09/30/2021 What Type Of Diet Are You Following? REGULAR Information n ot available 09/30/2021 What Is The Highest Grade Or Level Of School You Have Completed Or The Highest Degree You Have Received? [id number] Information not available 01/24/2022 Are There Any Guns Present In Your Home? No Information not available 01/24/2022 Do You Use Protection During Sex? No Information not available 01/24/2022 Do You Use Your Seat Belt Or Car Seat Routinely? Yes Information not available 01/24/2022 Do You Have Smoke And Carbon Monoxide Detectors In Your Home? Yes Information not available 01/24/2022 At What Age Did You Start Smoking Tobacco? 16 Information not available 01/24/2022 How Much Tobacco Do You Smoke? No Information not available 01/24/2022 Do You Use Sunscreen Routinely? No Information not available 01/24/2022 How Many Years Have You Smoked Tobacco? 6 Information not available 01/24/2022 Have You Used IV Drugs? No Information not available 01/24/2022 Do You Have Difficulty Walking Or Climbing Stairs? No Information not available 01/24/2022 Sex: Unknown Functional Status Question Answer Note LastModified by Organizat ion Details LastModified Time Do you use any illicit or recreational drugs? No Information not available 01/24/2022 What is your level of alcohol consumption? None Information not available 01/24/2022 Are you able to walk independently without assistance or assistive devices? YESWOREST Information not available 09/30/2021 Are you able to care for yourself independently? Yes Information not available 01/24/2022 Do you have difficulty dressing, bathing, grooming, or toileting? No Information not available 01/24/2022 What is your exercise level? Moderate Information not available 01/24/2022 Mental Status Question Answer Note LastModified by Organization D etails LastModified Time Do you feel stressed (tense, restless, nervous, or anxious, or unable to sleep at night)? [id number] Information not available 01/24/2022 Family History Relationship Description Onset Age of this Age Resolved Age Notes LastModified by Organization Details LastModified Time Father No current problems or disability [email or web address] Not available 08/23 15:06:28 Mother No current problems or disability [email or web address] Not available 08/23 15:06:28 Medical History Condition Response Allergies (Food, seasonal, environmental ) Y Other N Breast Cancer N Drug/Latex Allergies/Reactions N Blood Transfusion N Dermatologic Disorders N Lung Disease N Defects or Inherited Disease N Breast Problem N Gestational Diabetes N Hematologic disorders N Anesthesia Complications N History of STI Y Deep Vein Thrombosis N Polycystic ovary syndrome N Anxiety Disorder Y Autoimmune disease N Arthritis N Infertility N Polyps N Acid Reflux (GERD) N History of abnormal pap Y Cancer N Stroke N Varicosities N Neurologic/Epilepsy Y Endometriosis N High Cholesterol N Headaches N Fibromyalgia N Kidney Disease N Heart Problems N Kidney or Bladder Problems N Thyroid Problems N GI Problems N Eating Disorder N Anemia N Art (IVF or FET) N Psychiatric Illness Y Ovarian Cancer N Diabetes N Pulmonary (TB, Asthma) N Hepatitis/Liver Disease N No Past Medical History N Eczema N Urinary Tract Infection N Abuse/Domestic Violence N Asthma Y Trauma/Violence N Depression/ depression Y Heart Disease N Pre-Eclampsia N Hypertension N Osteoporosis N Thrombophilias N Gynecological History Statement/Question Response Date of Last Mammogram Flow Light Date of LMP 02/04/2025 N Was last menstrual period normal Y STIs/STDs Y Desired Control Method Sterilizati on Abnormal Pap Y On BCP's at Conception? N HPV Vaccine Y Colposcopy 04/29/2012 Duration of Flow (days) 7 Current Control Method Sterilizati on Are cycles usually normal Y Frequency of Cycle (Q days) 28 Sexually Active? Y Menses Monthly Y Date of DEXA bone scan Age of first menstrual cycle 15 Date of Last Pap Smear 11/01/2022 Sexual Problems? N LMP Approximate N 04/07/2015 Obstetrics History GPAL:G 3 P 3 0 0 3 Type Value Full Term 3 Living 3 Total 3 Past Encounters Encounter ID Performer Location Encounter Start Date Encounter Closed Date Diagnosis/Indication Diagnosis SNOMED-CT Code Diagnosis ICD10 Code Diagnosis IMO Codes [id number] [address] [address] 08/23/2020 11:52:44 08/23/2020 13:49:11 Gynecologic examination [id number] Z01.419 Take Calcium with Vitamin D 1200mg daily if not receiving in daily diet. It is strongly advised to have an annual flu shot and up can obtain at most pharmacies . If you have not had a TDap shot in the last 10 years you should obtain one as well. Discussed with patient & provided with informatio n regarding Gardisil vaccine to prevent the 4 strains for HPV that cause cervical cancer if under age 26. Encourage safe sexual practices, to use condoms and limit partners if not already in a monogamous relationsh ip. Do monthly self breast exams. Have mammogram yearly or every other year depending on family history. BRCA testing is now available for patients with strong genetic history of female cancer. If interested contact the office. Engage in daily exercise of low impact aerobic exercise 45-60 minutes 4-5 times weekly. Avoid tobacco and illicit drugs as well as using moderation with alcohol intake less than 1-2 8 oz beverages daily. This lifestyle behavior pattern will lead to less health conditions and longer life span. If BMI greater than 25 weight watchers or dietary consult advised. Patient received above instructio ns, and questions have been answered. If you have any questions please call or respond to this email. Patient was made aware of the patient portal and may obtain a paper copy of today's plan if desired. pap/hpv opts to be sent Last pap 2019 [facility] ion care management [id number] Z30.9 Happy on nuvaring [id number] [address] Pichardo [place] [address],[place] [address] 10/20/2021 10:31:05 10/20/2021 13:13:14 Gynecologic examination 29301115 Z01.419 Take Calcium with Vitamin D 1200mg daily if not receiving in daily diet. It is strongly advised to have an annual flu shot and up can obtain at most pharmacies . If you have not had a TDap shot in the last 10 years you should obtain one as well. Discussed with patient & provided with informatio n regarding Gardisil vaccine to prevent the 4 strains for HPV that cause cervical cancer if under age 26. Encourage safe sexual practices, to use condoms and limit partners if not already in a monogamous relationsh ip. Do monthly self breast exams. Have mammogram yearly or every other year depending on family history. BRCA testing is now available for patients with strong genetic history of female cancer. If interested contact the office. Engage in daily exercise of low impact aerobic exercise 45-60 minutes 4-5 times weekly. Avoid tobacco and illicit drugs as well as using moderation with alcohol intake less than 1-2 8 oz beverages daily. This lifestyle behavior pattern will lead to less health conditions and longer life span. If BMI greater than 25 weight watchers or dietary consult advised. Patient received above instructio ns, and questions have been answered. If you have any questions please call or respond to this email. Patient was made aware of the patient portal and may obtain a paper copy of today's plan if desired. WWE today, no gynecologi c issuesHapp y with NuvaRing contracept cesar. No hx of DVT/PE, HTN, liver disease, Cancer, or migraine with aura.Is considerin g permanent sterilizat ion options, we discussed if she decides she is ready for this option she can call to schedule a surgical consult with Dr. Yost.Has noticed some decreased libido recently. Recently saw PCP for routine lab work which was normal. 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 We discussed importance of getting enough rest, exercise, healthy eating, etc. We discussed options for decreased libido (medical managment options, switching control, etc). She is not interested in these options for now.Hx of abnormal pap smear in 2011. Last pap in 2020 normalPap done todaySTI testing added to papNo family hx of breast or ovarian cancerLump felt in right breast at 12 o'clock, right breast ultrasound order given.RTC in one year for WWE or sooner if needed. Contracept ion care management [id number] Z30.9 Mass of right breast 220 [id number] N63.10 Venereal d isease screening 659130288 Z11.3 Reduced libido 6750701 R 68.82 [id number] Sonia Zenaidajohnson [facility] [address] [address] 01/24/2022 12:37:33 01/24/2022 14:09:25 Contraception care management [id number] Z30.9 Pruritus of vulva 987066 00 L29.2 External vulvar irritation noted.Inte rnal speculum exam WNLVaginit is panel sentSTI endocervic al testing sentRx sent, likely external irritation /yeast given hx of recent antibiotic useRTC if symptoms persist past treatment Time spent in visit is a total of 20 mins with at least 50% of visit consisting of counseling and review of plan of care. Venereal d isease screening 230174012 Z11.3 [id number] Sonia Zenaidajohnson JETHRO [place] [address],[place] [address] 11/01/2022 10:15:25 11/01/2022 11:41:36 Gynecologic examination 79962065 Z01.419 Z11.51 Take Calcium with Vitamin D 1200mg daily if not receiving in daily diet. It is strongly advised to have an annual flu shot and up can obtain at most pharmacies . If you have not had a TDap shot in the last 10 years you should obtain one as well. Discussed with patient & provided with informatio n regarding Gardisil vaccine to prevent the 4 strains for HPV that cause cervical cancer if under age 26. Encourage safe sexual practices, to use condoms and limit partners if not already in a monogamous relationsh ip. Do monthly self breast exams. Have mammogram yearly or every other year depending on family history. BRCA testing is now available for patients with strong genetic history of female cancer. If interested contact the office. Engage in daily exercise of low impact aerobic exercise 45-60 minutes 4-5 times weekly. Avoid tobacco and illicit drugs as well as using moderation with alcohol intake less than 1-2 8 oz beverages daily. This lifestyle behavior pattern will lead to less health conditions and longer life span. If BMI greater than 25 weight watchers or dietary consult advised. Patient received above instructio ns, and questions have been answered. If you have any questions please call or respond to this email. Patient was made aware of the patient portal and may obtain a paper copy of today's plan if desired. [facility], happy with this methoddeni es any contraindi cationsR/B /A discussedr efills sent x 12 monthspap doneSTI testing declinedfa sting labs orderedpos sibly enlarged thyroid on exam. labs ordered, she will f/u with PCP for further exam/possi ble u/sRTC in 1 year or sooner if needed Adult heal th examination [id number] Z00.00 Contracept ion care management [id number] Z30.9 [id number] Selvin Yost MD [facility] [address],[place] [address] 07/30/2023 13:49:33 07/30/2023 14:33:08 [id number] Selvni Yost MD [facility] [address],[place] [address] 07/30/2023 13:50:03 07/30/2023 15:25:50 Amenorrhea [id number] N91.2 This patient is a 33-year-ol d female presents for amenorrhea . She has a positive test and an ultrasound revealed a 7 week 4 day intrauteri ne . Talked about care, early parts of it. We talked about genetic screening. Talked about her next ultrasound . Talked about recommenda tions for diet, exercise, over-the-c ounter medication s. She is nausea. We talked about treatment and alternativ e treatments to nausea. We talked about reflux and its treatment in . We spent over 20 minutes face-to-fa ce. More than 50% was counseling . She will follow-up in 4 weeks. [id number] Selvin Yost MD [facility] [address],[place] [address] 09/05/2023 14:53:31 09/05/2023 15:47:12 screening 485138066 Z36.82 Z3A.12 [id number] [facility] [address],[place] [address] 09/05/2023 14:54:07 09/05/2023 18:01:24 Gestation period, 12 weeks 04966877 Z3A.12 [id number] [facility] [address],[place] [address] 10/03/2023 09:32:59 10/03/2023 10:44:58 Routine care [id number] Z34.82 [id number] Selvin Yost MD [facility] [address],[place] [address] 10/31/2023 17:01:17 11/01/2023 01:37:25 screening 738145527 Z36.3 Z03.75 Z3A.21 [id number] [facility] [address],[place] [address] 10/31/2023 17:04:13 11/02/2023 16:08:59 Routine care 364642210 Z34.82 [id number] Selvin Yost MD [facility] [address],[place] [address] 11/12/2023 14:10:23 11/12/2023 14:24:46 [id number] Selvin Yost MD [facility] [address],[place] [address] 12/05/2023 11:57:30 12/05/2023 13:42:22 screening 160209542 Z36.2 Z3A.26 [id number] Stacey Herrera CNM [facility] [address],[place] [address] 12/05/2023 11:57:58 12/05/2023 16:23:06 Routine care 115771816 Z34.82 screening [id number] Z36.89 [id number] Stacey Herrera CNM [facility] [address],[place] [address] 12/19/2023 14:41:46 12/19/2023 15:09:47 Routine care 280059254 Z34.82 [id number] Selvin Yost MD [facility] [address],[place] [address] 01/02/2024 11:34:27 01/02/2024 12:08:00 History of SARS-CoV-2 1866634412 [id number] Z86.16 Z3A.30 [id number] [facility] [address],[place] [address] 01/02/2024 11:34:43 01/02/2024 14:51:50 Routine care 460894408 Z34.82 History of SARS-CoV-2 29 00398533 [id number] Z86.16 [id number] [facility] [address],[place] [address] 01/18/2024 11:33:26 01/18/2024 12:01:14 Gestation period, 32 weeks 3086142 Z3A.32 continue vitamin [id number] Selvin Yost MD [facility] [address],[place] [address] 02/01/2024 10:59:41 02/01/2024 12:10:12 History of SARS-CoV-2 4211376196 [id number] Z86.16 Z3A.34 [facility] [address],[place] [address] 02/01/2024 10:59:59 02/01/2024 11:59:47 Selvin Yost MD [facility] [address],[place] [address] 02/01/2024 11:45:13 02/01/2024 12:29:14 Reduced movement 942791698 O36.8199 [id number] [facility] [address] [place] [address] 02/15/2024 10:40:51 02/15/2024 11:56:41 Gestation period, 36 weeks 02995033 Z3A.36 continue vitamin [id number] Selvin Yost MD [facility] [address],[place] [address] 02/15/2024 11:05:03 02/15/2024 11:30:05 Reduced movement 540959886 O36.8199 [id number] Selvin Yost MD [facility] [address],[place] [address] 02/20/2024 16:46:13 02/20/2024 17:21:54 condition affecting obstetrical care of mother [id number] O35.3XX0 Z3A.37 [id number] [facility] [address],[place] [address] 02/20/2024 16:46:36 02/21/2024 09:05:09 Routine care 946437470 Z34.82 continue panel [id number] Stacey Herrera [facility] [address],[place] [address] 02/27/2024 09:56:33 02/27/2024 10:44:05 Routine care 729063724 Z34.82 continue vitamin [id number] Stacey Herrera [facility] [address],[place] [address] 04/02/2024 12:41:00 04/02/2024 14:30:17 care 058041036 Z39.2 if salpingect charline will call and schedule with dr. garycall if desires nuvaring [id number] Selvin Yost MD [facility] [address],[place] [address] 05/05/2024 16:00:58 05/05/2024 17:15:56 Abnormal uterine bleeding [id number] 9100 N93.9 [id number] SHAUNA GARY MD [facility] [address],[place] [address] 05/12/2024 11:28:42 05/12/2024 12:10:25 Sterilization requested [id number] Z30.2 - patient desires permanent sterilizat ion- discussed risks, benefits, and alternativ es of bilateral salpingect charline, including risks of bleeding, infection and injury to surroundin g organs. Also discussed alternativ e contracept cesar options including partner vasectomy and patient declines.- tubal papers signed [id number] SHAUNA GARY MD [facility] [address],[place] [address] 12/24/2024 10:21:00 12/24/2024 11:12:06 Consultation [id number] Z30.09 [id number] - patient desires permanent sterilizat ion- discussed risks, benefits, and alternativ es of bilateral salpingect charline, including risks of bleeding, infection and injury to surroundin g organs. Also discussed alternativ e contracept cesar options including partner vasectomy and patient declines.- tubal papers signed [id number] SHAUNA GARY MD [facility] [address],[place] [address] 02/02/2025 09:04:46 02/02/2025 10:48:32 Postoperative pain 282462885 G89.18 [id number] [id number] SHAUNA GARY MD [facility] [address],[place] [address] 02/09/2025 17:06:45 02/09/2025 17:35:21 Postoperative visit 795316995 Z48.89 [id number] - S/p lap bilateral salpingect charline on 02/02- meeting post op milestones , pain well controlled - incisions c/d/i- ok to d/c restrictio ns- RTC 1 year for [employer] Health Concerns Section Related Observation LastModified by Organization Detai ls LastModified Time None Recorded Concern Status LastModified by Organization Details LastModified Time None Recorded Advance Directives Directive N: Payers Insurance Date Sequence Insurance Name Policy Number Policy Sifuentes Covered Member ID Sifuentes Member ID Guarantor Name 08/14/2024 1 [place] Didi Gomez [id number] Didi Gomez 02/16/2025 1 [facility] - DOS ON OR AFTER 20 (MEDICAID REPLACEMENT - HMO) Didi Gomez [id number] Didi Gomez 11/01/2022 1 [facility] - DOS PRIOR TO 2020 (MEDICAID REPLACEMENT - HMO) Didi Gomez [id number] Didi Gomez 07/01/2024 1 [facility] - DOS ON OR AFTER 20 (MEDICAID REPLACEMENT - HMO) Didi Gomez [id number] Didi Gomez Notes Date Note Type Note Provider Name and Address Organization Details Recorded Time 05/12/2024 text/html Patient presents for discussion of permanent sterilization. She has completed childbearing and would like a permanent form of control. No PSH. She and her partner have discussed their options and would like to move forward with tubal ligation. SHAUNA GARY MD [address], [place], [address], [facility] 05/12/2024 12:10:11 12/24/2024 text/html Patient presents for discussion of permanent sterilization. She has completed childbearing and would like a permanent form of control. No PSH. She and her partner have discussed their options and would like to move forward with tubal ligation. SHAUNA GARY MD [address], [place], [address], [facility] 12/24/2024 11:10:24 02/09/2025 text/html S/p lap bilateral salpingectomy 02/02. Patient doing well, no complaints. Pain well controlled. Tolerating general diet. Denies nausea or vomiting. No shortness of breath or chest pain. Ambulating. Having some bloating. SHAUNA GARY MD [address], [place], [address], [facility] 02/09/2025 17:33:51 OBGyn Episode Ob Episode Information Episode Created Date Number of Fetuses Patient Bloodtype Patient rh Status Prepregnancy Weight lbs Domestic Partner Domestic Partner Phone Father Name Photograph Mounter Status 08/24/19 21 1 CLOSED Fetus Data First Name Last Name Admitted to NICU Weight (g) Sex Living Outcome Pediatric Complications Fetus ID Race Codes Race Delivery Type 3855.53 2 F Full Term 8171 Vaginal Delivery Louie Calculation Initial Louie Date Initial Exam Date Initial Exam Provider Initial Ultrasound Date Last Menstrual Period Date Ultra Sound Weeks Gestation 0 Eighteen To Twenty Week Louie Update Ultra Sound Date Fundal Height At Umbil Quickening Date Ultra Sound Latest Weeks Gestation Final Louie Confirmed By Final Louie Confirmed Date Final Louie Date Ultra Sound Latest Days Gestation 0 0 Menstrual History Last Menstrual Date Menses Monthly On Bcp Conception Prior Menses Frequency Hcg Plus Date Menarche Onset Age Delivery Information Delivery Date Delivery Type Labor Anesthesia Weeks Gestation Incision Type Labor Labor Length Hrs Delivered By Post Complications Tubal Sterilization Discharge Date Comments 4 37 Discharge Information Feeding Method Contraceptive Method Maternal HG B and HCT Levels Ob Episode Information Episode Created Date Number of Fetuses Patient Bloodtype Patient rh Status Prepregnancy Weight lbs Domestic Partner Domestic Partner Phone Father Name Photograph Mounter Status 08/24/19 21 1 CLOSED Fetus Data First Name Last Name Admitted to NICU Weight (g) Sex Living Outcome Pediatric Complications Fetus ID Race Codes Race Delivery Type 3486.76 1704 F Full Term 8170 Vaginal Delivery Louie Calculation Initial Louie Date Initial Exam Date Initial Exam Provider Initial Ultrasound Date Last Menstrual Period Date Ultra Sound Weeks Gestation 0 Eighteen To Twenty Week Louie Update Ultra Sound Date Fundal Height At Umbil Quickening Date Ultra Sound Latest Weeks Gestation Final Louie Confirmed By Final Louie Confirmed Date Final Louie Date Ultra Sound Latest Days Gestation 0 0 Menstrual History Last Menstrual Date Menses Monthly On Bcp Conception Prior Menses Frequency Hcg Plus Date Menarche Onset Age Delivery Information Delivery Date Delivery Type Labor Anesthesia Weeks Gestation Incision Type Labor Labor Length Hrs Delivered By Post Complications Tubal Sterilization Discharge Date Comments 9 39 Discharge Information Feeding Method Contraceptive Method Maternal HG B and HCT Levels Ob Episode Information Episode Created Date Number of Fetuses Patient Bloodtype Patient rh Status Prepregnancy Weight lbs Domestic Partner Domestic Partner Phone Father Name Photograph Mounter Status 09/05/19 24 1 A Negative 210 Stephan Conner CLOSED Fetus Data First Name Last Name Admitted to NICU Weight (g) Sex Living Outcome Pediatric Complications Fetus ID Race Codes Race Delivery Type 3827.18 25 M true Full Term [id number] Vaginal Delivery Problems Problem Notes hx marijuana use- rec cessat ion Problem Name Start Date End Date Resolution Snomed Code Not e COVID-19 10/26/2023 [id number] serial gr owth, ASA History of loop electrosurgical excision procedure [id number] History of asthma 594937303 ex ercise-has inhaler RhD negative [id number] 12/19/23 administered Louie Calculation Initial Louie Date Initial Exam Date Initial Exam Provider Initial Ultrasound Date Last Menstrual Period Date Ultra Sound Weeks Gestation 03/13/2024 07/30/2023 07/30/2023 06/07/2023 7 Eighteen To Twenty Week Louie Update Ultra Sound Date Fundal Height At Umbil Quickening Date Ultra Sound Latest Weeks Gestation Final Louie Confirmed By Final Louie Confirmed Date Final Louie Date Ultra Sound Latest Days Gestation 09/05/19 24 13 03/12/20 24 0 Pre- Flowsheet Flowsheet Date 09/05/2023 Conner Score Blood Edema Fundus Height Fundus Units Glucose Ketones Leukocytes Nitrite Labor Signs Protein Cervic Dilation Cervic Effacement Cervic Station neg none none trace Type Weight in lbs Pre/Post Dialysis Refused Weight 216.476341288474 BP Diastolic BP Location Tested BP Systolic BP Type 62 111 Fetus Heart Rate Present Fetus Movement A No Comments reviewed history delivered a t 37 weeks 2 previous vaginal deliveries, per pt no HTN or GDM. reviewed education and precautions, wn Flowsheet Date 10/03/2023 Conner Score Blood Edema Fundus Height Fundus Units Glucose Ketones Leukocytes Nitrite Labor Signs Protein Cervic Dilation Cervic Effacement Cervic Station neg none none trace Type Weight in lbs Pre/Post Dialysis Refused Weight 219.093530434645 BP Diastolic BP Location Tested BP Systolic BP Type 73 104 Fetus Heart Rate Present Fetus Movement A Yes Comments Patient states that having s ome discharge. not feeling movement yet, anatomy at next , considering restarting adhd meds, will talk to pcp if restarts will consult mfm, pt to call, education and precautionsconsidering tubal ligation, discussed salpingectomy and decreased risk of ovarian ca, will sign consents at 28 weekspt discussed hx abnl pap hx, not mentioned in prev history Flowsheet Date 10/31/2023 Conner Score Blood Edema Fundus Height Fundus Units Glucose Ketones Leukocytes Nitrite Labor Signs Protein Cervic Dilation Cervic Effacement Cervic Station Type Weight in lbs Pre/Post Dialysis Refused BP Diastolic BP Location Tested BP Systolic BP Type Fetus Heart Rate Present Fetus Movement Comments Flowsheet Date 10/31/2023 Conner Score Blood Edema Fundus Height Fundus Units Glucose Ketones Leukocytes Nitrite Labor Signs Protein Cervic Dilation Cervic Effacement Cervic Station neg none none trace Type Weight in lbs Pre/Post Dialysis Refused Weight 227.791962182357 BP Diastolic BP Location Tested BP Systolic BP Type 79 118 Fetus Heart Rate Present Fetus Movement A Yes Comments CL- 4.3 cm, anatomy complete , efw 50%, doing well, precautions, f/u 4 weeks Flowsheet Date 11/12/2023 Conner Score Blood Edema Fundus Height Fundus Units Glucose Ketones Leukocytes Nitrite Labor Signs Protein Cervic Dilation Cervic Effacement Cervic Station Type Weight in lbs Pre/Post Dialysis Refused BP Diastolic BP Location Tested BP Systolic BP Type 83 117 Fetus Heart Rate Present Fetus Movement Comments Flowsheet Date 12/05/2023 Conner Score Blood Edema Fundus Height Fundus Units Glucose Ketones Leukocytes Nitrite Labor Signs Protein Cervic Dilation Cervic Effacement Cervic Station Type Weight in lbs Pre/Post Dialysis Refused BP Diastolic BP Location Tested BP Systolic BP Type Fetus Heart Rate Present Fetus Movement Comments Flowsheet Date 12/05/2023 Conner Score Blood Edema Fundus Height Fundus Units Glucose Ketones Leukocytes Nitrite Labor Signs Protein Cervic Dilation Cervic Effacement Cervic Station trace Type Weight in lbs Pre/Post Dialysis Refused Weight 232.44887673532 BP Diastolic BP Location Tested BP Systolic BP Type 66 105 Fetus Heart Rate Present Fetus Movement A Yes Comments Patient states that having s ome cramping and swelling. 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 education and precautions, lab slip given for GCT and rhogam, f/u 2 weeks ob visit Flowsheet Date 12/19/2023 Conner Score Blood Edema Fundus Height Fundus Units Glucose Ketones Leukocytes Nitrite Labor Signs Protein Cervic Dilation Cervic Effacement Cervic Station none 30 Type Weight in lbs Pre/Post Dialysis Refused Weight 234.145122644265 BP Diastolic BP Location Tested BP Systolic BP Type 74 106 Fetus Heart Rate Present A 146 Present Fetus Movement A Yes Comments Patient states that is havin g some pressure. education and precautions, doing well, work is ok, letting her sit as much as needed, f/u 2 weeks Flowsheet Date 01/02/2024 Conner Score Blood Edema Fundus Height Fundus Units Glucose Ketones Leukocytes Nitrite Labor Signs Protein Cervic Dilation Cervic Effacement Cervic Station Type Weight in lbs Pre/Post Dialysis Refused BP Diastolic BP Location Tested BP Systolic BP Type Fetus Heart Rate Present Fetus Movement Comments Flowsheet Date 01/02/2024 Conner Score Blood Edema Fundus Height Fundus Units Glucose Ketones Leukocytes Nitrite Labor Signs Protein Cervic Dilation Cervic Effacement Cervic Station trace Type Weight in lbs Pre/Post Dialysis Refused Weight 234.133683517169 BP Diastolic BP Location Tested BP Systolic BP Type 79 122 Fetus Heart Rate Present Fetus Movement A Yes Comments Patient states that having s ome cramping and swelling. Flowsheet Date 01/18/2024 Conner Score Blood Edema Fundus Height Fundus Units Glucose Ketones Leukocytes Nitrite Labor Signs Protein Cervic Dilation Cervic Effacement Cervic Station 34 cm Type Weight in lbs Pre/Post Dialysis Refused 237.061185707785 BP Diastolic BP Location Tested BP Systolic BP Type 76 L arm 127 sitting Fetus Heart Rate Present A 138 Present Fetus Movement A Yes Comments pagtient c/o bh ctx, and swe lling. precutions and education, +FM f/u 2 weeks has a planned growth US Flowsheet Date 02/01/2024 Conner Score Blood Edema Fundus Height Fundus Units Glucose Ketones Leukocytes Nitrite Labor Signs Protein Cervic Dilation Cervic Effacement Cervic Station Type Weight in lbs Pre/Post Dialysis Refused BP Diastolic BP Location Tested BP Systolic BP Type Fetus Heart Rate Present Fetus Movement Comments Flowsheet Date 02/01/2024 Conner Score Blood Edema Fundus Height Fundus Units Glucose Ketones Leukocytes Nitrite Labor Signs Protein Cervic Dilation Cervic Effacement Cervic Station Type Weight in lbs Pre/Post Dialysis Refused BP Diastolic BP Location Tested BP Systolic BP Type Fetus Heart Rate Present Fetus Movement Comments Flowsheet Date 02/01/2024 Conner Score Blood Edema Fundus Height Fundus Units Glucose Ketones Leukocytes Nitrite Labor Signs Protein Cervic Dilation Cervic Effacement Cervic Station none Type Weight in lbs Pre/Post Dialysis Refused 239.729416330226 BP Diastolic BP Location Tested BP Systolic BP Type 73 118 Fetus Heart Rate Present Fetus Movement A Yes Comments Patient states that she is h aving contractions. feeling pressure, discussed taking work down to 3 days a week efw 62%, precautions and education f.u 2 weeks plan gbs Flowsheet Date 02/15/2024 Conner Score Blood Edema Fundus Height Fundus Units Glucose Ketones Leukocytes Nitrite Labor Signs Protein Cervic Dilation Cervic Effacement Cervic Station trace Type Weight in lbs Pre/Post Dialysis Refused 241.95691902774 BP Diastolic BP Location Tested BP Systolic BP Type 82 123 Fetus Heart Rate Present Fetus Movement A Decreased Comments Patient states that has had decrease movement, contractions and swelling. NST Reactive, gave kick counts, education and precautions, breast pump given, gbs collected f/u one week Flowsheet Date 02/15/2024 Conner Score Blood Edema Fundus Height Fundus Units Glucose Ketones Leukocytes Nitrite Labor Signs Protein Cervic Dilation Cervic Effacement Cervic Station Type Weight in lbs Pre/Post Dialysis Refused BP Diastolic BP Location Tested BP Systolic BP Type Fetus Heart Rate Present Fetus Movement Comments Flowsheet Date 02/20/2024 Conner Score Blood Edema Fundus Height Fundus Units Glucose Ketones Leukocytes Nitrite Labor Signs Protein Cervic Dilation Cervic Effacement Cervic Station Type Weight in lbs Pre/Post Dialysis Refused BP Diastolic BP Location Tested BP Systolic BP Type Fetus Heart Rate Present Fetus Movement Comments Flowsheet Date 02/20/2024 Ocnner Score Blood Edema Fundus Height Fundus Units Glucose Ketones Leukocytes Nitrite Labor Signs Protein Cervic Dilation Cervic Effacement Cervic Station none Type Weight in lbs Pre/Post Dialysis Refused Weight 246.321206978756 BP Diastolic BP Location Tested BP Systolic BP Type 75 123 Fetus Heart Rate Present Fetus Movement A Yes Comments Patient states that is havin g some contractions. declines cervical exam, +FM US 78%, education and precautions. f/u one week Flowsheet Date 02/27/2024 Conner Score Blood Edema Fundus Height Fundus Units Glucose Ketones Leukocytes Nitrite Labor Signs Protein Cervic Dilation Cervic Effacement Cervic Station trace 39 cm Type Weight in lbs Pre/Post Dialysis Refused 244.377649495259 BP Diastolic BP Location Tested BP Systolic BP Type 78 116 Fetus Heart Rate Present A 146 Fetus Movement A Yes Comments Patient states that is havin g some pain, contractions and swelling. would like to plan IOl for 39 weeks, membrane sweep done education and precautions Menstrual History Last Menstrual Date Menses Monthly On Bcp Conception Prior Menses Frequency Hcg Plus Date Menarche Onset Age 1206/07/2023 Genetic Screening And Infection History Question Response Note Mental Retardation/Autism false Patient's Age Will Be 35 Yea rs Or Older At Estimated Date of Delivery false Thalassemia (Macedonian, Rwandan, Mediterranean, Or Background): MCV < 80 false Neural Tube Defect (Meningom yelocele, Spina Bifida, Or Anencephaly) false Congenital Heart Defect false Down Syndrome false Lucas-Sachs (eg, Church, Cajun, Macanese-[place]) f alse Viri Disease false Sickle Cell Disease Or Trait () false Hemophilia Or Other Blood Disorders false Muscular Dystrophy false Cystic Fibrosis false [place]'s Chorea false Intellectual Disability/Autism false If Yes, Was Person Tested For Fragile X? false Other Inherited Genetic Or Chromosomal Disorder false Maternal Metabolic Disorder (eg, Type 1 Diabetes , PKU) false Patient Or Baby's Father Had A Child With Defects Not Listed Above false Recurrent Loss, Or A Stillbirth false Medications (including Suppl ements, Vitamins, Herbs, OTC Drugs), Illicit/Recreational Drugs, Alcohol true pnv, aller gy med If Yes, Agent(s) And Strength/Dosage false Any Other Genetic History false Live With Someone With TB Or Exposed To TB false Patient Or Partner Has History Of Genital Herpes false Rash Or Viral Illness Since Last Menstrual Perio d false History Of STD, Gonorrhea, Chlamydia, HPV, Syphi lis false Other Infection History false History of HIV false History of Hepatitis false Prior GBS-infected child false Hemoglobinopathy Or Carrier false Other Structural Defect false Recent Travel History Outside of Country false Delivery Information Delivery Date Delivery Type Labor Anesthesia Weeks Gestation Incision Type Labor Labor Length Hrs Delivered By Post Complications Tubal Sterilization Discharge Date Comments 4 Induce d Regional-Ep idural 39 false Stacey Herrera [facility] COVID-19, History of asthma,Hi story of loop electrosu rgical excision procedure ,RhD negative Discharge Information Feeding Method Contraceptive Method Maternal HG B and HCT Levels
--- OUTSIDE RECORDS SUMMARY | 2025-03-18 15:06 | XMS_ITS | Clinical Summary ---
Author Organization [facility] Address [address] [place] [id number] Care Team Providers Care Bear Keeper Name Role Phone Cordelia Lee MD Primary Care Provider [phone] Allergies No known active allergies Social History [...] Cancer Screening with HPV 2021 COVID-19 Vaccine (1 - 2023-2 5 season) 2025 Meningococcal B Vaccine Aged Out No l [...] patient's age to complete this topic Insurance [employer] Care Teams Bear Keeper Relationship Specialty Start Date End Date Cordelia Lee MD [address] [place] [id number] PCP - General FAMILY PRACTICE 12/08/18
--- OUTSIDE RECORDS SUMMARY | 2025-03-18 15:06 | XMS_ITS | Data Portability ---
Author Organization [facility] [employer], Main Office Address [address] [place] [address] Assessment No assessment recorded. Plan of Treatment Reminders Order Date Submit Date Provider Last Modified By Organization Details Last Modified Time Details Appointments None recorded. Lab TSH, serum or plasma [address] (Lab), [address] [place], [address], 4 08:25:54 urinalysis complete, reflex culture [address] (Lab), [address] [place], [address], 4 08:25:53 urinalysis, dipstick [address], [address], 4 15:56:51 drug screen, urine - Pt prescribed dextroamphe tamine-amph etamine 20 mg. Please check for illicits, benzos, opiates, other stimulants as well as confirmatio n of current meds. 2023 024 [facility] (Lab), [address] [place], [address], 4 20:43:52 urinalysis, dipstick [address], [address], 3 14:18:58 Referral physical therapist referral - LBP 2022 023 [email or web address], [address], [address], [place], [address], 3 09:02:59 physical therapist referral - *Please call pt to schedule 2 orders* 2022 023 [email or web address], [address], [address], [place], [address], 3 08:41:38 physical therapist referral - *Please call pt to schedule* 2022 023 [email or web address], [address], [address], [place], [address], 3 08:41:37 Procedures None recorded. Surgeries None recorded. Imaging US, thyroid 2023 024 [id number] Not available 4 09:32:58 US, thyroid [address] (Imaging), [address] [place] [address], [address], 10:19:15 US, gallbladder [address] (Imaging), [address] [place] [address], [address], 3 10:18:57 Medication Orders budesonide- formoterol HFA 160 mcg-4.5 mcg/actuati on aerosol inhaler 2023 024 [id number], [address] [place], [id number], 4 16:31:14 cetirizine 10 mg tablet 2023 024 [facility] #[id number], [address] [facility], [place], [place], [id number], 4 14:59:31 famotidine 20 mg tablet 2023 024 [facility] #72172, [address] [facility], [place], [place], [id number], 4 14:59:30 cephalexin 500 mg capsule [address] [facility]12371, [address] [facility], [place], [place], [id number], 4 15:52:33 fluticasone propionate 50 mcg/actuati on nasal spray,suspe nsion 2023 024 [facility] #85688, [address] [facility], [place], [place], [id number], 4 14:59:30 azelastine 137 mcg (0.1 %) nasal spray 2023 024 [facility] #77047, [address] [facility], [place], [place], [id number], 4 14:59:31 cyclobenzap rine 10 mg tablet [address] [facility] #[id number], [address] [facility], [place], [place], [id number], 4 15:53:10 cetirizine 10 mg tablet 2022 023 [facility] #09808, [address] [facility], [place], [place], [id number], 3 14:50:30 famotidine 20 mg tablet 2022 023 [facility] #54621, [address] [place], [place], [id number], 3 14:50:30 dextroamphe tamine-amph etamine 20 mg tablet 2022 023 [facility] #20659, [address] [place], [place], [id number], 4 15:53:02 Patient TargetsNo targets recorded. Patient Instructions Encounter Date Encounter Id Patient Instructions Last Modified By Organization Details Last Modified Time 02/08/2023 [id number] FU in 3 mo for adhd, anxiety/depressio n, gerd, allergies. Not available 02/08/2023 11:50:53 03/27/2023 [id number] 1 mo fu for return back to work WITHOUT restrictions Not available 03/27/2023 10:37:36 07/05/2023 [id number] Fu in 1-3 mo shine [facility] for med check adhd. Not available 07/05/2023 15:25:39 Reason for Referral Physical Therapist Referral for Pain of right shoulder joint *Please call pt to schedule* Referring Physician: Monica Khoury [facility], Encounter Date: 03/27/2023 Physical Therapist Referral for Neck pain *Please call pt to schedule 2 orders* Referring Physician: [facility], Encounter Date: 03/27/2023 Physical Therapist Referral for Low back pain LBP Referring Physician: Monica Khoury [facility], Encounter Date: 04/12/2023 Results Created Date Observation Date Name Description Value Unit Range Abnormal Flag Note LastModifiedBy Organization Detail LastModifiedTime 04/12/20 23 04/12/2023 urina lysis , dipst ick Leukocytes (reference range: negative janette/ l) Trace Not Available [facility] [address] [facility], [place], [address], 04/12/2023 14:17:58 04/12/2004/12/2023 urina lysis , dipst ick Nitrite (reference rage: negative mg/dl) negati ve Not Available [address], [address], 04/12/2023 14:17:58 04/12/2004/12/2023 urina lysis , dipst ick Urobilinogen (reference range: 0.2-1 mg/dl) 1 Not Available [address], [address], 04/12/2023 14:17:58 04/12/2004/12/2023 urina lysis , dipst ick Protein (reference range: negative mg/dl) Trace Not Available [address], [address], 04/12/2023 14:17:58 04/12/2004/12/2023 urina lysis , dipst ick pH (reference range: 5-7) 6.5 Not Available [address], [address], 04/12/2023 14:17:58 04/12/2004/12/2023 urina lysis , dipst ick Blood (reference range: negative Monster/ l) Negati ve Not Available [address], [address], 04/12/2023 14:17:58 04/12/2004/12/2023 urina lysis , dipst ick Specific Wanda (reference range: 1.005-1.030) 1.020 Not Available [address], [address], 04/12/2023 14:17:58 04/12/2004/12/2023 urina lysis , dipst ick Ketone (reference range: negative mg/dl) Negati ve Not Available [address], [address], 04/12/2023 14:17:58 04/12/2004/12/2023 urina lysis , dipst ick Bilirubin (reference range: negative mg/dl) Negati ve Not Available [address], [address], 04/12/2023 14:17:58 04/12/2004/12/2023 urina lysis , dipst ick Glucose (reference range: negative mg/dl) Negati ve Not Available [address], [address], 04/12/2023 14:17:58 04/12/2004/12/2023 urina lysis , dipst ick Appearance Clear Not Available [address], [address], 04/12/2023 14:17:58 04/12/2004/12/2023 urina lysis , dipst ick Color Teller Not Available [address], [address], 04/12/2023 14:17:58 07/05/19 24 07/05/2023 URINE DRUG SCREE N amphetamines POSITI VE abnormal Amphe tamin e cut off 500 ng/mL Not Available [facility] (Lab) [address] [place], [address], 07/05/2023 20:43:52 07/05/19 24 07/05/2023 URINE DRUG SCREE N barbiturates NEGATI VE Narcisa turat e cut off 200 ng/mL Not Available [facility] (Lab) [address] [place], [address], 07/05/2023 20:43:52 07/05/19 24 07/05/2023 URINE DRUG SCREE N benzodiazepi scout NEGATI VE Benzo diaze pine cut off 200 ng/mL Not Available [facility] (Lab) [address] [place], [address], 07/05/2023 20:43:52 07/05/19 24 07/05/2023 URINE DRUG SCREE N cocaine NEGATI VE Cocai ne metab olite cut off 150 ng/mL Not Available [facility] (Lab) [address] [place], [address], 07/05/2023 20:43:52 07/05/19 24 07/05/2023 URINE DRUG SCREE N MDMA NEGATI VE MDMA cut off 500 ng/mL Not Available [facility] (Lab) [address] [place], [address], 07/05/2023 20:43:52 07/05/19 24 07/05/2023 URINE DRUG SCREE N methadone NEGATI VE Metha done cutof f 300 ng/mL . Not Available [facility] (Lab) [address] [place], [address], 07/05/2023 20:43:52 07/05/19 24 07/05/2023 URINE DRUG SCREE N opiates NEGATI VE Opiat e cut off 300 ng/mL Not Available [facility] (Lab) [address] [place], [address], 07/05/2023 20:43:52 07/05/19 24 07/05/2023 URINE DRUG SCREE N oxycodone NEGATI VE Oxyco done cut off 100 ng/mL Not Available [facility] (Lab) [address] [place], [address], 07/05/2023 20:43:52 07/05/19 24 07/05/2023 URINE DRUG SCREE N phencyclidin e NEGATI VE PCP cut off 25 ng/mL Not Available [facility] (Lab) [address] [place], [address], 07/05/2023 20:43:52 07/05/19 24 07/05/2023 URINE DRUG SCREE N marijuana POSITI VE abnormal Marij uana cut off 50 ng/mL ANY POSIT LINWOOD RESUL TS REPOR URIAH ARE UNCON FIRME D, AND SUCH, SHOUL D BE USED FOR MEDIC AL TREAT MENT PURPO SES ONLY. Not Available [facility] (Lab) [address] [place], [address], 07/05/2023 20:43:52 07/05/19 24 07/05/2023 urina lysis , dipst ick Leukocytes (reference range: negative janette/ l) Negati ve Not Available [address], [address], 07/05/2023 15:44:28 07/05/19 24 07/05/2023 urina lysis , dipst ick Nitrite (reference rage: negative mg/dl) negati ve Not Available [address], [address], 07/05/2023 15:44:28 07/05/19 24 07/05/2023 urina lysis , dipst ick Urobilinogen (reference range: 0.2-1 mg/dl) 0.2 Not Available [address], [address], 07/05/2023 15:44:28 07/05/19 24 07/05/2023 urina lysis , dipst ick Protein (reference range: negative mg/dl) Negati ve Not Available [address] [place], [address], 07/05/2023 15:44:28 07/05/19 24 07/05/2023 urina lysis , dipst ick pH (reference range: 5-7) 6.0 Not Available [address], [address], 07/05/2023 15:44:28 07/05/19 24 07/05/2023 urina lysis , dipst ick Blood (reference range: negative Monster/ l) Non-He molyze d: Trace Not Available [address], [address], 07/05/2023 15:44:28 07/05/19 24 07/05/2023 urina lysis , dipst ick Specific Wanda (reference range: 1.005-1.030) 1.000 Not Available [address], [address], 07/05/2023 15:44:28 07/05/19 24 07/05/2023 urina lysis , dipst ick Ketone (reference range: negative mg/dl) Negati ve Not Available [address], [address], 07/05/2023 15:44:28 07/05/19 24 07/05/2023 urina lysis , dipst ick Bilirubin (reference range: negative mg/dl) Negati ve Not Available [address], [address], 07/05/2023 15:44:28 07/05/19 24 07/05/2023 urina lysis , dipst ick Glucose (reference range: negative mg/dl) Negati ve Not Available [address] [place], [address], 07/05/2023 15:44:28 01/27/20 23 01/26/2023 XR, chest No observ ation record ed. [facility] [address], [place], [address], 01/31/2023 08:04:53 Result Notes None recorded. Problems Name Problem SNOMED Code Status Onset Date Resolution Date Notes Provider Name and Address Organization Details Recorded Time Fluid level behind tympanic membrane Completed Not Available [facility] 3 17:45:27 Upper respirato ry infection 21871005 Completed Not Available [facility] 3 17:45:28 Posterior rhinorrhe a 90376655 Completed Not Available [facility] 3 17:45:28 Fatigue 79682404 Completed Not Available [facility] 3 17:45:29 Urinary tract infectiou s disease 87905265 Completed 201602/13/2017 Not Available [facility] 3 17:45:28 Anxiety 47386674 Active 2016 Not Available [facility] 3 17:45:28 Allergic rhinitis 95320249 Active 2020 Not Available [facility] 3 17:45:28 Attention deficit hyperacti vity disorder, predomina ntly inattenti ve type 29347983 Active 2020 Not Available [facility] 3 17:45:27 Obesity 782636338 Active 2020 Not Available [facility] 3 17:45:27 Chronic idiopathi c constipat ion 26193098 Active 2020 Not Available [facility] 3 17:45:28 Viral pharyngit is 9823476 Active 2021 Not Available [facility] 3 17:45:26 Bronchiti s 24897709 Active 2021 Not Available [facility] 3 17:45:27 Chronic sinusitis 32690636 Active 2021 Not Available [facility] 3 17:45:27 Cough 32921174 Active 2021 Not Available [facility] 3 17:45:28 Bilateral earache 226533240 Active 2021 Not Available [facility] 3 17:45:27 Indigesti on 014717889 Active 2021 Not Available [facility] 3 17:45:27 Mixed anxiety and depressiv e disorder 289683964 Active 2021 Not Available [facility] 3 17:45:27 Overweigh t 096969072 Active 2021 Not Available [facility] 3 17:45:27 Feeling irritable 20358026 Active 2022 Monica Khoury NP [address], [address], [place], [address] , [employer] [facility] 3 13:00:41 Attention deficit hyperacti vity disorder 502846844 Active 2022 Monica Khoury NP [address], [place], [address] , [facility] 3 13:04:34 Neck pain 21762938 Active 2022 Monica Khoury NP [address], [address], [place], [address] , [employer] [facility] 3 12:50:09 Goiter 7514412 Active 2022 Monica Khoury NP [address], [place], [address] , [employer] [facility] 3 12:51:27 Thoracic back pain 053307962 Active 2022 Monica Khoury NP [address], [address], [place], [address] , [employer] [facility] 3 13:04:33 Conjuncti vitis 5475860 Active 2022 Monica Khoury NP [address], [address], [place], [address] , [employer] [facility] 3 11:11:41 Seasonal allergic rhinitis 458155170 Active 2022 Monica Khoury NP [address], [address], [place], [address] , [employer] [place] [facility] 3 13:20:32 Vitamin D deficienc y 04640396 Active 2022 Monica Khoury NP [address], [address], [place], [address] , [employer] [facility] 3 11:48:28 Pain of right shoulder joint 67769419526 610351 Active 2022 Monica Khoury NP [address], [address], [place], [address] , [employer] [facility] 3 10:03:52 Strain of neck muscle 603302947 Active 2022 Monica Khoury NP [address], [place], [address] , [employer] [facility] 3 10:04:36 Low back pain 752310444 Active 2022 Monica Khoury NP [address], [place], [address] , [employer] [facility] 3 14:17:56 Ingrowing toenail 558677992 Active 2023 Monica Khoury NP [address], [place], [address] , [employer] [facility] 4 14:52:50 Vaginal irritatio n 864825242 Active 2023 Monica Khoury NP [address], [place], [address] , [employer] [place] [facility] 4 15:44:25 Asthma 546529085 Active 2023 DAMIAN Valencia [address], [place], [address] , [employer] [facility] 4 16:18:58 Increased frequency of urination 672421193 Active 2023 Brii Beatty, DAMIAN [address] [facility] [facility] [address], [place], [address] , [facility] [employer] [facility] 4 16:26:12 Problem Notes None recorded. Procedures Surgical History Date Name Laterality Status Provider Name and Address Organization Details Recorded Time 10/24/19 23 Date of Last Pap Smear completed Monica Corona RN [facility] [email or web address] [facility] 02/08/2023 14:33:23 05/30/20 21 Appendectomy completed Not Available [facility] 08/23/2022 17:43:45 loop electrosurgical excision procedure completed Not Available [facility] 08/23/2022 17:43:45 Imaging Results None recorded. Procedure Notes None recorded. Medical Equipment None Reported. Allergies No known drug allergies Medications Name Sig Start Date Stop Date Status Note LastModified by Organization Details LastModified Time cyclobenza josé 10 mg tablet TAKE 1 TABLET BY MOUTH THREE TIMES DAILY NEEDED 09/09 completed Not Available Not Available Not Available amoxicilli n 500 mg capsule TAKE 1 CAPSULE BY MOUTH THREE TIMES DAILY 05/30 completed Not Available Not Available Not Available prednisone 10 mg tablet 01/26 completed Not Available Not Available Not Available doxycyclin e hyclate 100 mg capsule TAKE 1 CAPSULE BY MOUTH TWICE DAILY FOR 10 DAYS 02/08 completed Not Available Not Available Not Available cetirizine 10 mg tablet TAKE 1 TABLET BY MOUTH EVERY DAY active Not Available Not Available No t Available azithromyc in 250 mg tablet TAKE 2 TABLETS (500 MG) BY ORAL ROUTE ONCE DAILY FOR 1 DAY THEN 1 TABLET (250 MG) BY ORAL ROUTE ONCE DAILY FOR 4 DAYS active Not Available Not Available No t Available nystatin 100,000 unit/gram topical ointment 05/30 completed Not Available Not Available Not Available fluconazol e 150 mg tablet TAKE 1 TABLET BY MOUTH 1 TIME. REPEAT IN 7 DAYS IF SYMPTOMS PERSIST 05/30 completed Not Available Not Available Not Available benzonatat e 200 mg capsule Take 1 capsule every 8 hours by oral route as needed for 7 days. 09/01 completed Not Available Not Available Not Available hydrocodon e 5 mg-acetami nophen 325 mg tablet TAKE 1 TABLET BY MOUTH EVERY 4-6 HOURS NEEDED FOR PAIN 05/30 completed Not Available Not Available Not Available metronidaz ole 0.75 % (37.5 mg/5 gram) vaginal gel 01/19 completed Not Available Not Available Not Available prednisone 20 mg tablet TAKE 2 TABLETS BY MOUTH DAILY FOR 5 DAYS 02/08 completed Not Available Not Available Not Available Tubersol 5 tub. unit/0.1 mL intraderma l injection solution Inject 0.1 mL every day by intrader mal route for 1 day. 10/08 completed Not Available Not Available Not Available terconazol e 0.8 % vaginal cream 05/30 completed Not Available Not Available Not Available metronidaz ole 500 mg tablet 01/19 completed Not Available Not Available Not Available phentermin e 37.5 mg tablet TAKE 1 TABLET BY MOUTH EVERY DAY 03/16 completed Not Available Not Available Not Available acetaminop hen 300 mg-codeine 30 mg tablet TAKE 1 TABLET BY MOUTH EVERY 6 HOURS NEEDED FOR PAIN. active Not Available Not Available No t Available fexofenadi ne 180 mg tablet TAKE 1 TABLET BY MOUTH EVERY DAY 01/26 completed Not Available Not Available Not Available ciprofloxa flaco 250 mg tablet Take 1 tablet every 12 hours by oral route for 3 days. 07/23 completed Not Available Not Available Not Available amoxicilli n 500 mg tablet Take 1 tablet twice a day by oral route for 10 days. active Not Available Not Available No t Available famotidine 20 mg tablet TAKE 1 TABLET BY MOUTH EVERY DAY active Not Available Not Available No t Available dextroamph etamine-am phetamine ER 20 mg 24hr capsule,ex tend release TK ONE C PO QD active Not Available Not Available No t Available sulfacetam marlyn sodium 10 % eye drops INSTILL 1 DROP INTO AFFECTED EYE(S) BY OPHTHALM IC ROUTE EVERY 2-3 HOURS DURING THE DAY AND LESS FREQUENT LY AT NIGHT for 5-7 days 02/08 completed Not Available Not Available Not Available doxycyclin e monohydrat e 100 mg capsule TAKE 1 CAPSULE BY MOUTH TWICE DAILY 01/26 completed Not Available Not Available Not Available hydrocodon e 7.5 mg-acetami nophen 325 mg tablet 12/18 completed Not Available Not Available Not Available cephalexin 500 mg capsule TAKE 1 CAPSULE BY MOUTH THREE TIMES DAILY FOR 7 DAYS 09/09 completed Not Available Not Available Not Available paroxetine 20 mg tablet TK 1 T PO QD 06/07 completed Not Available Not Available Not Available triamcinol one acetonide 0.1 % topical ointment 01/26 completed Not Available Not Available Not Available dextroamph etamine-am phetamine 20 mg tablet TAKE 1 TABLET BY MOUTH EVERY DAY DIRECTED 09/09 completed Not Available Not Available Not Available dextroamph etamine-am phetamine 15 mg tablet TAKE 1 TABLET BY MOUTH EVERY DAY 02/08 completed Not Available Not Available Not Available buspirone 7.5 mg tablet Take 1 tablet 3 times a day by oral route for 30 days. active Not Available Not Available No t Available montelukas t 10 mg tablet TAKE 1 TABLET BY MOUTH EVERY DAY active Not Available Not Available No t Available azelastine 137 mcg (0.1 %) nasal spray USE 2 SPRAYS IN EACH NOSTRIL TWICE DAILY 2023 active Not Available Not Available Not Avai lable methylpred nisolone 4 mg tablets in a dose pack FOLLOW PACKAGE DIRECTIO NS 09/01 completed Not Available Not Available Not Available albuterol sulfate HFA 90 mcg/actuat ion aerosol inhaler INHALE 2 PUFFS BY MOUTH EVERY 4 HOURS active Not Available Not Available No t Available fluticason e propionate 50 mcg/actuat ion nasal spray,susp ension USE 1 SPRAY IN EACH NOSTRIL DAILY 2023 active Not Available Not Available Not Avai lable sertraline 50 mg tablet TAKE 1 TABLET BY MOUTH DAILY 02/08 completed Not Available Not Available Not Available loratadine 10 mg tablet TAKE 1 TABLET BY MOUTH EVERY DAY IN THE MORNING 01/26 completed Not Available Not Available Not Available naproxen 500 mg tablet 12/24 completed Not Available Not Available Not Available amoxicilli n 875 mg-potassi um clavulanat e 125 mg tablet Take 1 tablet every 12 hours by oral route with meals for 10 days. 01/19 completed Not Available Not Available Not Available neomycin-p olymyxin-h ydrocort 3.5 mg-10,000 unit/mL-1 % ear drops,susp INSTILL 3-4 DROPS INTO AFFECTED EAR(S) BY OTIC ROUTE 3 TIMES PER DAY 09/01 completed Not Available Not Available Not Available dextroamph etamine-am phetamine ER 15 mg 24hr capsule,ex tend release TAKE 1 CAPSULE BY MOUTH EVERY DAY 08/29 completed Not Available Not Available Not Available etonogestr el 0.12 mg-ethinyl estradiol 0.015 mg/24 hr vaginal ring INSERT 1 RING VAGINALL Y EVERY MONTH 09/09 completed Not Available Not Available Not Available escitalopr am 10 mg tablet TAKE 1 TABLET BY MOUTH EVERY DAY 10/11 completed Not Available Not Available Not Available cyclobenza josé 5 mg tablet Take 1 tablet 3 times a day by oral route as needed. active Not Available Not Available No t Available nitrofuran toin monohydrat e/macrocry stals 100 mg capsule TK 1 C PO Q 12 H FOR 10 DAYS 12/24 completed Not Available Not Available Not Available duloxetine 30 mg capsule,de layed release Take 1 capsule every day by oral route. 11/09 completed Not Available Not Available Not Available Symbicort 160 mcg-4.5 mcg/actuat ion HFA aerosol inhaler INHALE 2 PUFFS BY MOUTH TWICE DAILY active Not Available Not Available No t Available cholecalci ferol (vitamin D3) 1,250 mcg (50,000 unit) capsule TAKE 1 CAPSULE BY MOUTH WEEKLY 09/09 completed Not Available Not Available Not Available Nexplanon 68 mg subdermal implant Inject by subcutan eous route. 07/23 completed PLACED 5 Not Available Not Available Not Available Vitals Date Recorded Body height Body mass index (BMI) Body weight Body temperature Respiratory rate Pain severity - 0-10 verbal numeric rating [Score] - Reported Oxygen saturation Oxygen saturation in Arterial blood by Pulse oximetry Heart rate Systolic And Diastolic Provider Name and Address Organization Details Last Updated DateTime 4 175.26 cm 30.3 kg/m2 36218.7 9 g 97.3 [degF] 20 /min 2 98 % 98 % 109 /min 138/72 mm[Hg] Monica Corona RN [place] [facility] 4 14:41:22 Date Recorded Body height Body mass index (BMI) Body weight Body temperature Heart rate Respiratory rate Oxygen saturation Oxygen saturation in Arterial blood by Pulse oximetry Pain severity - 0-10 verbal numeric rating [Score] - Reported Systolic And Diastolic Provider Name and Address Organization Details Last Updated DateTime 4 175.26 cm 31.7 kg/m2 92405.3 6 g 96.6 [degF] 105 /min 24 /min 99 % 99 % 0 118/70 mm[Hg] Monica Corona RN [facility] [email or web address] [facility] 4 15:56:07 Date Recorded Body height Body mass index (BMI) Body weight Body temperature Heart rate Respiratory rate Oxygen saturation Oxygen saturation in Arterial blood by Pulse oximetry Pain severity - 0-10 verbal numeric rating [Score] - Reported Systolic And Diastolic Provider Name and Address Organization Details Last Updated DateTime 3 175.26 cm 30.9 kg/m2 46968.2 1 g 97.6 [degF] 92 /min 16 /min 98 % 98 % 0 152/98 mm[Hg] Monica Corona RN [facility] [email or web address] [facility] 3 14:31:37 Date Recorded Body height Body mass index (BMI) Body weight Body temperature Heart rate Respiratory rate Oxygen saturation Oxygen saturation in Arterial blood by Pulse oximetry Pain severity - 0-10 verbal numeric rating [Score] - Reported Systolic blood pressure Provider Name and Address Organization Details Last Updated DateTime 3 175.26 cm 31.1 kg/m2 20344.2 g 96.7 [degF] 69 /min 20 /min 98 % 98 % 0 120 mm[Hg] GREGORIO Jeffers [facility] [email or web address] [facility] 3 09:49:38 Date Recorded Body height Body mass index (BMI) Body weight Body temperature Heart rate Respiratory rate Oxygen saturation Oxygen saturation in Arterial blood by Pulse oximetry Pain severity - 0-10 verbal numeric rating [Score] - Reported Systolic And Diastolic Provider Name and Address Organization Details Last Updated DateTime 3 175.26 cm 30.9 kg/m2 82523.5 1 g 96.6 [degF] 80 /min 20 /min 98 % 98 % 0 100/60 mm[Hg] Monica Corona RN [facility] [email or web address] [facility] 3 14:01:57 Social History Question Answer Notes LastModified by Organization Details LastModified Time Tobacco Smoking Status Never Smoker Not Available [facility] 08/23/2022 17:43:26 Do You Have An Advance Directive? No MIGRATION.0301 [id number] Information not available 08/23/2022 Do You Wear A Helmet When Biking? No MIGRATION.0301 [id number] Information not available 08/23/2022 Is Blood Transfusion Acceptable In An Emergency? Yes Information not available 10/11/2022 What Is Your Level Of Caffeine Consumption? Moderate MIGRATION.0301 [id number] Information not available 08/23/2022 How Much Tobacco Do You Chew? None MIGRATION.0301 [id number] Information not available 08/23/2022 What Is Your Code Status? Full Code Information not available 10/11/2022 In The 14 Days Before Symptom Onset, Have You Had Close Contact With A Laboratory-conf irmed COVID-19 While That Case Was Ill? Yes MIGRATION.0301 054179 Information not available 08/23/2022 In The 14 Days Before Symptom Onset, Have You Had Close Contact With A Person Who Is Under Investigation For COVID-19 While That Person Was Ill? No MIGRATION.0301 138211 Information not available 08/23/2022 What Type Of Diet Are You Following? REGULAR MIGRATION.0301 026112 Information not available 08/23/2022 Which Illicit Or Recreational Drugs Have You Used? Marijauna Information not available 09/10/2023 What Is The Highest Grade Or Level Of School You Have Completed Or The Highest Degree You Have Received? AA16694-4 MIGRATION.0301 [id number] Information not available 08/23/2022 How Many Days Of Moderate To Strenuous Exercise, Like A Brisk Walk, Did You Do In The Last 7 Days? 3 Information not available 10/11/2022 On Those Days That You Engage In Moderate To Strenuous Exercise, How Many Minutes, On Average, Do You Exercise? 30 Information not available 10/11/2022 Have There Been Any Changes To Your Family Or Social Situation? No MIGRATION.0301 114209 Information not available 08/23/2022 Do You Use Insect Repellent Routinely? No MIGRATION.0301 836807 Information not available 08/23/2022 Where Do You Live? SingleLevelHouse MIGRATION.0301 070873 Information not available 08/23/2022 Do You Have A Medical Power Of Correctional Program Officer? No MIGRATION.0301 007521 Information not available 08/23/2022 How Many Children Do You Have? 1 Pregnany, Due In February 2024 Information not available 09/10/2023 Do You Have Any Pets? No MIGRATION.0301 721344 Information not available 08/23/2022 What Is Your Relationship Status? Single MIGRATION.0301 554253 Information not available 08/23/2022 Do You Use Your Seat Belt Or Car Seat Routinely? Yes MIGRATION.0301 747040 Information not available 08/23/2022 Do You Have Smoke And Carbon Monoxide Detectors In Your Home? Yes MIGRATION.0301 038604 Information not available 08/23/2022 Are You Passively Exposed To Smoke? No MIGRATION.0301 179280 Information not available 08/23/2022 Are There Any Smokers In Your House? No MIGRATION.0301 991424 Information not available 08/23/2022 Do You Participate In Social Media? Yes MIGRATION.0301 968052 Information not available 08/23/2022 What Types Of Sporting Activities Do You Participate In? Walk Information not available 10/11/2022 Do You Use Sunscreen Routinely? Yes MIGRATION.0301 857086 Information not available 08/23/2022 Has Tobacco Cessation Counseling Been Provided? No MIGRATION.0301 241507 Information not available 08/23/2022 Have You Recently Traveled Abroad? No MIGRATION.0301 160184 Information not available 08/23/2022 Are You Currently In School? No MIGRATION.0301 329643 Information not available 08/23/2022 Do You Have Any Dietary Restrictions? No MIGRATION.0301 765843 Information not available 08/23/2022 Sex: Female Functional Status Question Answer Note LastModified by Organizat ion Details LastModified Time Do you use any illicit or recreational drugs? Yes Information not available 09/10/2023 Do you or have you ever used any other forms of tobacco or nicotine? No MIGRATION.511791 6303 Information not available 08/23/2022 What is your level of alcohol consumption? None MIGRATION.[id number] 2236 Information not available 08/23/2022 Do you or have you ever used smokeless tobacco? Never used smokeless tobacco MIGRATION.978166 1309 Information not available 08/23/2022 Are you currently employed? 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 Never used electronic cigarettes MIGRATION.174665 4854 Information not available 08/23/2022 What is your exercise level? Occasional Information not available 10/11/2022 Mental Status Question Answer Note LastModified by Organizat ion Details LastModified Time Do you feel stressed (tense, restless, nervous, or anxious, or unable to sleep at night)? [id number] [id number] Information not available 08/23/2022 Family History Relationship Description Onset Age of this Age Resolved Age Notes LastModified by Organization Details LastModified Time Father No current problems or disability MIGRATION.287 [id number] Not available 08/23/2022 17:43:45 Mother No current problems or disability MIGRATION.943 [id number] Not available 08/23/2022 17:43:45 Medical History Condition Response MRSA N SLEEP APNEA N ALLERGIES/HAYFEVER Y LUNG DISEASE/DISORDER N INSOMNIA N HISTORY OF DRUG ABUSE N RADIATION / CHEMOTHERAPY N COPD N HIGH CHOLESTEROL / HYPERLIPIDEMIA N HYPERTHYROIDISM N BLOOD DISEASES N EAR OR HEARING PROBLEMS N HYPOTHYROIDISM N SHINGLES N DEPRESSION (INCLUDING POST ) Y HAVE YOU BEEN HOSPITALIZED OR SEEN IN [facility] IN THE PAST YEAR ? N STROKE/TIA N ULCERS N OBESITY N ANEURYSM N HISTORY WITH COMPLICATIONS WITH ANESTHES IA ? N NO SIGNIFICANT PAST MEDICAL HISTORY N USE OF BLOOD THINNERS N DIABETES, TYPE N PARATHYROID DISEASE N ENT N SEASONAL ALLERGIES N HEARTBURN / REFLUX N ADD/ADHD Y ASTHMA Y HEPATITIS / LIVER DISEASE N SLEEP DISORDER N HEADACHES/MIGRAINES N SEIZURES/EPILEPSY N CHF N PACEMAKER N DIZZINESS N HEART DISEASE/HEART PROBLEMS N AIDS/HIV N FRACTURES N HYPERTENSION N CANCER: SPECIFY N TOURETTE'S N ANXIETY DISORDER Y BLOOD TRANSFUSION N ANESTHESIA COMPLICATIONS N ANEMIA/BLOOD DISORDER N CHRONIC EAR INFECTIONS N TUBERCULOSIS N Gynecological History Statement/Question Response Flow Light Date of LMP 06/07/2023 STIs/STDs N Dislike of Light during Menstrual Headac he N Date of Last Pap Duration of Flow (days) 4 Most Recent Mammogram Current Control Method None Age at Menarche 15 Breast Problems none How many live births 2 Date of Last Mammogram Date of Last Colonoscopy Frequency of Cycle (Q days) 28 Most Recent Bone Density Sexually Active? Y Do you get headaches during your period N Menses Monthly Y Date of Last Pap Smear 10/23/2022 Discharge none Obstetrics History GPAL:G 2 P 0 0 0 0 Past Encounters Encounter ID Performer Location Encounter Start Date Encounter Closed Date Diagnosis/Indication Diagnosis SNOMED-CT Code Diagnosis ICD10 Code Diagnosis IMO Codes Diagnosis Note [id number] Adrián Bradshaw MD [facility]_[address] [address] 10/08/2020 00:00:00 10/08/2020 11:15:01 [id number] Adrián Bradshaw MD [address] [address] 01/12/2021 00:00:00 01/12/2021 14:40:49 [id number] Adrián Bradshaw MD [address] [address] 03/22/2021 00:00:00 03/22/2021 09:17:41 [id number] Adrián Bradshaw MD [address] [address] 05/30/2021 00:00:00 05/30/2021 17:18:16 [id number] Adrián Bradshaw MD [address] [address] 07/18/2021 00:00:00 07/18/2021 10:01:28 [id number] [facility] [place] [address] [place] [address] 07/19/2021 00:00:00 07/19/2021 12:40:09 [id number] Adrián Bradshaw MD [address] [address] 07/20/2021 00:00:00 07/20/2021 10:44:37 [id number] [facility] [address] [place] [address] 07/25/2021 00:00:00 07/25/2021 16:17:55 [id number] Adrián Bradshaw MD [facility] [address] [place] [address] 07/29/2021 00:00:00 07/29/2021 11:28:29 [id number] Adrián Bradshaw MD [facility] [address] [place] [address] 09/01/2021 00:00:00 09/01/2021 11:44:29 [id number] Adrián Bradshaw MD [facility] [address] [place] [address] 11/14/2021 00:00:00 11/14/2021 11:09:36 [id number] Adrián Bradshaw MD [facility] [address] [place] [address] 12/21/2021 00:00:00 12/21/2021 13:15:04 [id number] [facility] [address] [place] [address] 01/26/2022 00:00:00 01/26/2022 10:17:11 [id number] Monica Khoury NP [facility] [address] [place] [address] 03/16/2022 00:00:00 03/16/2022 13:01:02 [id number] Adrián Bradshaw MD [facility] [address] [place] [address] 05/30/2022 00:00:00 05/30/2022 12:32:56 [id number] Monica Khoury NP [facility] [address] [place] [address] 10/11/2022 12:27:24 10/11/2022 13:12:00 Anxiety 89387861 F41.9 Failed on lexapro and sertraline (didn't take).Cymb tatyana 30 mg po daily Feeling irritable 175704 07 R45.4 Referring to psych for eval for bipolar.Ma y need abilify in the future. Attention deficit hyperactivity disorder, predominantly inattentive type 21538791 F90.0 dextroamph etamine-am phetamine 15 mg po daily. [id number] Monica Khoury NP [address] [address] 11/09/2022 12:29:08 11/09/2022 13:51:57 Goiter 0643603 E04.9 US thyroid.TS H normal level. Neck pain 27890372 M54.2 Muscle relaxer prn. Use heat/ice compress. Physical therapy. Thoracic back pain 88016 8004 M54.6 Physical therapy. [id number] Monica Khoury NP [address] [address] 02/08/2023 14:25:50 02/08/2023 14:56:33 Seasonal allergic rhinitis 350645766 J30.2 Azelastine nasal sprayCetir izine 10 mg po dailyFlona se nasal sprayAlbut jovan inh prn. Indigestion 709051471 K3 0 Famotidine 20 mg po daily Mixed anxi ety and depressive disorder 711888216 F41.8 stable on no meds. Vitamin D deficiency 347 25947 E55.9 Vit d 50,000 IU po weekly. Attention deficit hyperactivity disorder, predominantly inattentive type 82160018 F90.0 Dextroamph etamine-am phetamine 20 mg po daily. Allergic rhinitis 060786 04 J30.9 cetirizine 10 mg po daily. [id number] Monica Khoury NP [address] [address] 03/27/2023 09:40:30 03/27/2023 10:39:20 Pain of right shoulder joint 6405409176 1597849 M25.511 referring to pt Neck pain 28570878 M54.2 Muscle relaxer prn. Use heat/ice compress. Physical therapy. Strain of neck muscle 36 9447756 S16.1XXA flexeril 10 mg po tid. Indigestion 427857573 K3 0 Famotidine 20 mg po dailyBland diet. juanpablo whelan Goiter 4439749 E04.9 US thyroid.TS H normal level. [id number] Monica Khoury NP [address] [address] 04/12/2023 13:56:29 04/12/2023 14:28:37 Low back pain 713397461 M54.50 muscle relaxer, nsaid, muscle rub, heat/ice compress. Referring to pt. [id number] Monica Khoury NP [address] [address] 07/05/2023 14:32:54 07/05/2023 15:42:27 Ingrowing toenail 297271122 L60.0 keflex 500 mg po tid for 7 days. Indigestion 964229958 K3 0 Famotidine 20 mg po dailyBland diet. juanpablo whelan Seasonal a llergic rhinitis 673757738 J30.2 Azelastine nasal sprayCetir izine 10 mg po dailyFlona se nasal sprayAlbut jovan inh prn. Allergic rhinitis 769840 04 J30.9 cetirizine 10 mg po daily. Attention deficit hyperactivity disorder, predominantly inattentive type 65152862 F90.0 Dextroamph etamine-am phetamine 20 mg po daily. Vaginal irritation 96558 6004 N89.8 [id number] Adrián Bradshaw MD [address] [address] 09/10/2023 15:47:30 09/10/2023 17:07:29 Asthma 375549328 J45.909 Utilize throat lozenges, robitussin , and acetaminop hen for symptom management . Add vapor mist in your room. Swap Claritin for Zyrtec. Increased frequency of urination 021202322 R35.0 Goiter 6492315 E04.9 Health Concerns Section Related Observation LastModified by Organization Detai ls LastModified Time None Recorded Concern Status LastModified by Organization Details LastModified Time None Recorded Advance Directives Directive N: Payers Insurance Date Sequence Insurance Name Policy Number Policy Sifuentes Covered Member ID Sifuentes Member ID Guarantor Name 09/10/2023 1 [facility] - DOS ON OR AFTER 20 (MEDICAID REPLACEMENT - HMO) Didi Gomez [id number] Didi Gomez Notes Date Note Type Note Provider Name and Address Organization Details Recorded Time 02/08/2023 text/html Here for follow up on medication. ADHD- Stable. Doing well on medication for routine use.Allergies- Has cough, using mucinex. Was on doxy and prednisone. Still coughing. Mucus white/pale yellow. Was large green in the morning.Indigestio n- Stable.Anxiety and depression- stable on no meds. US thyroid not done yet. Monica Khoury NP [address], [address], [place], [address], [employer] 02/08/2023 14:54:03 03/27/2023 text/html Here for right shoulder pain for few weeks. Generally a right side sleeper, but not able to lay on right shoulder. Has been lifting with left arm and laying on left arm now.Has pain sitting still 0/10.Lifting purse, sharp pain 6/10 right side and into neck.No numbness or tingling in arms. Using ice compress on both shoulders and using Rice sock warmed.Has pain in forearm right with lifting ice buckets.Pain in right hand pointer finger pip joint. Unsure if jammed. Everything feeling fine until it pops. Has to lift 5 lb bucket of ice overhead, and 30 pk beer all day. Monica Khoury NP [address], [address], [place], [address], [employer] 03/27/2023 10:37:58 04/12/2023 text/html Here for lower back pain. Just off period. Urine is dark. Thought it could be uti and here to be checked. No pelvic pain, no fever or chills. Monica Khoury NP [address], [facility] [address], [place], [address], [employer] [facility] [email or web address] [facility] 04/12/2023 14:19:03 07/05/2023 text/html Here for check up on medication,. ADHD- has been managing well. FOcuses for work when on meds. Feeling well. Appetite good.Indigestion- stable on famotidine 20 mgAllergies- flonase, azelastine, cetirizine working well. Humidifier working at home.ingrown toenail- right foot great toe with tenderness and red. Pus present. Monica Khoury NP [address], [facility] [address], [place], [address], [facility] [employer] [facility] [email or web address] [facility] 07/05/2023 15:46:05 09/10/2023 text/html Didi is here today for persistent wheeze and cough. She is 13 weeks . She has a history of asthma. She has had a sore throat since 09/07/23. She states that her throat always feels irritates. She has been taking Zyrtec for years. She also complains of urinary frequency and lower abdominal pressure. She is experiencing nausea that she didn't experience in previous pregnancies. Her OB started unisom and B6 which she feels has helped. Brii Beatty, DAMIAN [address], [facility] [address], [place], [address], [employer] [facility] [email or web address] [facility] 09/10/2023 17:05:49 OBGyn Episode No OBEpisode recorded.
--- NOTE | 2025-03-18 15:08 | ED_ITS ---
HPI - Back Pain/Injury General Chief Complaint: Back Pain/Injury Stated Complaint: right side middle back pain Time Seen by Provider: 03/18/25 15:22 Source: patient and RN notes reviewed Mode of arrival: ambulatory Limitations: no limitations History of Present Illness HPI Narrative: 34-year-old female presents with concern for right mid back pain for 1 week. She denies trauma or injury. She reports she can find a position of comfort but certain movements make it hurt. She reports she has taken ibuprofen without relief. She denies any new cough or shortness of breath. She denies dysuria, frequency, urgency, hematuria. She denies bruising, redness, warmth, rash. She reports no tenderness to touch, pain is not worsened with deep breathing or coughing. She reports she had to leave work because of the pain. MD elicited complaint: back pain Related Data Home Medications ?Medication ?Instructions ?Recorded ?Confirmed ?Last Taken ?Type multivit,Ca,jxt-cqlu-N[place]-guarana-caff 1 tablet PO DAILY 07/11/24 03/05/25 01/30/25 History 18 mg iron-400 mcg-180 mg tablet (One-A-Day Women's Active) cholecalciferol (vitamin D3) 125 5,000 unit PO DAILY 0 01/26/25 03/05/25 01/30/25 History mcg (5,000 unit) tablet (Vitamin D3) magnesium glycinate 120 mg (as 240 mg PO HS 01/26/25 0 03/05/25 01/30/25 History glycinate) capsule Allergies Allergy/AdvReac Type Severity Reaction Status Date / Time No Known Allergies Allergy Verified 03/18/25 15:08 Review of Systems Review of Systems: CONSTITUTIONAL: Denies malaise, chills, sweats, or fever. CARDIOVASCULAR: Denies chest pain, palpitations, or edema. RESPIRATORY: Denies cough or dyspnea. GASTROINTESTINAL: Denies abdominal pain, nausea, vomiting, diarrhea, loss of bowel function GENITOURINARY: Denies dysuria, hematuria, frequency, loss of bladder function. SKIN: Denies rash or itching. MUSCULOSKELETAL: Reports right mid back pain NEUROLOGIC: Denies numbness, weakness, or headache. All systems reviewed & are unremarkable except as noted in HPI and below PMFSH Past Medical History Medical History Obesity Asthma Allergies Exercise-induced asthma ADHD Surgical History Surgical History H/O tubal ligation 02/02/25 S/P laparoscopic appendectomy 05/31/21 No significant past surgical history Family History Family History Mother Gallbladder disease Other Gallbladder disease Other Family history of malignant neoplasm of breast Hypertension Social History Social History Social History: 07/10/24 somewhat confident with medical forms Years smoked: 2 Smoking status: Never smoker Tobacco type: cigarettes Smoking end date: 01/26/14 Alcohol intake: current Substance use: current Substance use type: marijuana Other substance usage details: Daily Last use: 05/29/2021 Do You Feel Safe in your Home?: Yes Lack of Transportation: No Lack of Food: Never True Current Housing: I Have Housing Concerned About Future Housing: No Difficulty Paying Gas/Electric Bills: No Difficulty Paying for Meds: No Currently Unemployed: No Education: High School Diploma/GED Difficulty w/ Childcare or Family Care: No Living arrangements: with family Occupation/Education: occupation 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 There is no relevant family history pertinent to the presenting complaint Exam Narrative: GENERAL: Well-appearing, well-nourished, and in no acute distress. HEAD: Normocephalic, atraumatic. EYES: PERRLA and EOMI. NECK: Supple. No lymphadenopathy. CHEST: Clear to auscultation. No respiratory distress. HEART: Regular rate and rhythm. Distal pulses palpable and equal, cap refill <3 seconds ABDOMEN: No CVA tenderness MUSCULOSKELETAL: Normal range of motion and strength in all extremities; 5/5 strength with hip flexion and extension. Normal sensation in dermatomal distributions with sensitivity to light touch and pain. No midline back tenderness to palpation. No paraspinal tenderness. Transfers from lying to sitting to standing. SKIN: Warm, dry, no rash. No ecchymosis, erythema, open wounds to back. NEURO: No focal deficits. Alert and oriented x3. Normal gait. PSYCH: Normal mood and affect Course Course Emergency Course: Patient is aware of diagnosis, understands and agrees to treatment plan. Anticipatory guidance given. Patient agrees to follow-up as directed and is aware of reasons to seek care at the emergency department. Portions of this record may have been created with voice recognition software Level of Care: [facility] Visit Vital Signs Vital signs: Reviewed. MDM - Back Pain/Injury MDM Narrative Medical decision making narrative: [facility]. History is obtained from patient who is an independent historian and physical exam was performed.? Available medical records were reviewed. ? Exam findings and relevant testing show no acute concerns or changes; patient is non-toxic appearing and is in no distress. No risk factors or findings concerning for epidural abscess, diskitis, vertebral osteomyelitis, cord compression, cauda equina, vertebral fracture or bone malignancy, AAA, or pyelonephritis. Patient instructed to consider further imaging and workup through their primary care physician as an outpatient if symptoms persist. ? Differential diagnosis and treatment plan were discussed with the patient. Patient agrees with discussion and after shared medical decision making agrees with plan of care. All questions were answered to the patient's satisfaction. Patient is appropriate for outpatient treatment and follow-up. Imaging Data My impression: Images reviewed, interpreted by radiologist, agree, see report. Radiologist's impression: [XR ribs RT 2V w CXR 2V ] INDICATION: Right rib pain TECHNIQUE: Frontal projection of the upper right ribs, frontal projection of the lower right ribs, oblique projection of all the right ribs, frontal inspiratory chest x-ray for interpretation. FINDINGS: There are no displaced rib fractures identified. There are no soft tissue abnormality seen. The lungs are clear. IMPRESSION: 1:No acute displaced rib fractures. Critical Care Time Critical Care Time Critical Care Time: No Discharge Plan Discharge Clinical Impression: Back pain Patient Disposition: Home Condition: Stable Instructions: Back Pain (ED) Additional Instructions: Please follow up with your Primary Care Doctor within 48-72 hours - call for an appointment. Walking and other gentle exercising several times a week has been shown to improve back pain; bed rest is not recommended. Take prednisone, take muscle relaxers every 8 hours as needed for muscle spasm- do not drive or make any important decisions while on this medication for it can make you drowsy. You may apply heat or cold to the area as needed. If you experience any worsening pain, swelling, numbness, weakness please go to ER. Contact your doctor or go to the emergency department if you develop problems with bladder or bowel function, weakness or loss of feeling in one or both of your legs, or any other serious concerns. Patient Language: Austrian Prescriptions: New cyclobenzaprine 10 mg tablet 10 mg PO TID PRN (Reason: muscle spasm) Qty: 20 0RF prednisone 20 mg tablet 40 mg PO DAILY 5 Days Qty: 10 0RF No Action albuterol sulfate 90 mcg/actuation HFA aerosol inhaler 2 inh inhalation Q4H PRN (Reason: shortness of breath or wheezing) Qty: 8.5 0RF One-A-Day Women's Active 18 mg iron- 400 mcg-180 mg tablet 1 tablet PO DAILY fluticasone propionate [Flonase Allergy Relief] 50 mcg/actuation spray,susp ension 1 spray intranasal BID Qty: 16 3RF Rx Instructions: administer into each nostril cholecalciferol (vitamin D3) [Vitamin D3] 125 mcg (5,000 unit) tablet 5,000 unit PO DAILY magnesium glycinate 120 mg capsule 240 mg PO HS cetirizine 10 mg tablet 10 mg PO DAILY PRN (Reason: allergy symptoms) Qty: 90 3RF dextroamphetamine-amphetamine [Adderall XR] 25 mg capsule,extended release 24hr 25 mg PO QAM Qty: 30 0RF Follow-up/Referrals: Monica Khoury APRN [Primary Care Provider, Family Practice] Stand Alone Forms: Work/School Release IP Time of Disposition: 15:52
[2025-03-18 15:10] VITALS: BP 116/62; PULSE 75; RESP 18; TEMP 36.6; O2SAT 100
== END 2025-03-18 15:53 | disposition home or self-care (01) ==
PROVIDERS: Emergency Provider Nurse Practitioner; PCP Nurse Practitioner Family
DX: M54.6 Pain in thoracic spine (principal); E66.9 Obesity, unspecified; Z68.33 Body mass index [BMI] 33.0-33.9, adult; J45.990 Exercise induced bronchospasm; Z87.891 Personal history of nicotine dependence
CPT/HCPCS: 71046; 71100; 99213; G0463